=== PATIENT | male | born 1995 | race Caucasian/White ===

== ENCOUNTER 2019-04-17 18:48 | Emergency (ER) | payer SELFPAY ==
[~2019-04-17] VITALS: Ht 185 cm; Wt 87.1 kg
[~2019-04-17 18:48] MED LIST: ACET1TAB12 PO; ARPZ10T; CLC500CT; ESCI5TAB; FAMO10TA43; LISD40CA3; NAPR-243 PO
--- NOTE | 2019-04-17 19:05 | NUR ---
moved pt to room 7
[2019-04-17] MEDS ORDERED: NS IV 1000 ML 1,000 ML IV SCH (19:15)
[2019-04-17] MEDS ORDERED: ONDANSETRON 4 MG/2 ML (SDV) Z0FRAN IVP ONE (19:15)
--- NOTE | 2019-04-17 19:20 | ED Abdominal Pain ---
General Chief Complaint: Abdominal/GI Problems Stated Complaint: CHILLS, NAUSEA Nursing Triage Note: Patient ambulatory to ER with complaint of vomiting, diarrhea, intermittent fever and body aches x 3 days. Sepsis Screen: No Definite Risk Source of Information: Patient Exam Limitations: No Limitations History of Present Illness Date Seen by Provider: Apr 17, 2019 Time Seen by Provider: 19:18 Initial Comments Diffuse body aches nausea vomiting diarrhea and abdominal cramping for 3 days. Timing/Duration: 2-3 Days Severity/Quality: Moderate Location: Generalized Abdomen Radiation: No Radiation Activities at Onset: None Associated Symptoms: Nausea/Vomiting Allergies and Home Medications Allergies Coded Allergies: Penicillins (Unverified Allergy, Mild, 08/30/09) Patient Home Medication List Home Medication List Reviewed: Yes Review of Systems Review of Systems Constitutional: see HPI EENTM: No Symptoms Reported Respiratory: No Symptoms Reported Cardiovascular: No Symptoms Reported Gastrointestinal: See HPI, Abdominal Pain, Diarrhea, Nausea, Poor Appetite Genitourinary: No Symptoms Reported Musculoskeletal: no symptoms reported Skin: no symptoms reported Psychiatric/Neurological: No Symptoms Reported Endocrine: No Symptoms Reported Hematologic/Lymphatic: No Symptoms Reported Past Nzfjdzq-Bornks-Vmraqg Hx Patient Social History Alcohol Use: Denies Use Recreational Drug Use: No Smoking Status: Current Everyday Smoker Type Used: Electronic/Vapor 2nd Hand Smoke Exposure: Yes Recent Foreign Travel: No Contact w/Someone Who Travel: No Recent Infectious Disease Expo: No Recent Hopitalizations: No Immunizations Up To Date PED Vaccines UTD: Yes Seasonal Allergies Seasonal Allergies: No Past Medical History Surgeries: Yes Respiratory: No Cardiac: No Neurological: No Gastrointestinal: Yes Gastroesophageal Reflux Musculoskeletal: No Endocrine: No Cancer: No Psychosocial: Yes (Non medicated) ADD/ADHD, Anxiety, Bipolar, Depression Integumentary: No (septic MRSA) Blood Disorders: No Family Medical History No Pertinent Family Hx Physical Exam Vital Signs Vital Signs - First Documented 04/17/19 18:53 Temp 37.0 Pulse 69 Resp 16 B/P (MAP) 111/69 (83) Pulse Ox 100 O2 Delivery Room Air Capillary Refill : Less Than 3 Seconds Height/Weight/BMI Height: '" Weight: 160lbs. oz. 72.634200sb; 25.00 BMI Method:Stated General Appearance: WD/WN, no apparent distress HEENT: PERRL/EOMI, normal ENT inspection Neck: non-tender, full range of motion Respiratory: lungs clear, normal breath sounds, no respiratory distress, no accessory muscle use Cardiovascular: regular rate, rhythm Gastrointestinal: normal bowel sounds, non tender, soft Extremities: normal range of motion, non-tender Neurologic/Psychiatric: alert, normal mood/affect, oriented x 3 Skin: normal color, warm/dry Progress/Results/Core Measures Results/Orders Lab Results Laboratory Tests Test 04/17/19 19:10 04/17/19 20:01 Range/Units White Blood Count 5.8 4.3-11.0 10^3/uL Red Blood Count 5.18 4.35-5.85 10^6/uL Hemoglobin 15.3 13.3-17.7 G/DL Hematocrit 45 40-54 % Mean Corpuscular Volume 86 80-99 FL Mean Corpuscular Hemoglobin 30 25-34 PG Mean Corpuscular Hemoglobin Concent 34 32-36 G/DL Red Cell Distribution Width 12.6 10.0-14.5 % Platelet Count 201 130-400 10^3/uL Mean Platelet Volume 11.1 H 7.4-10.4 FL Neutrophils (%) (Auto) 54 42-75 % Lymphocytes (%) (Auto) 31 12-44 % Monocytes (%) (Auto) 9 0-12 % Eosinophils (%) (Auto) 5 0-10 % Basophils (%) (Auto) 1 0-10 % Neutrophils # (Auto) 3.1 1.8-7.8 X 10^3 Lymphocytes # (Auto) 1.8 1.0-4.0 X 10^3 Monocytes # (Auto) 0.5 0.0-1.0 X 10^3 Eosinophils # (Auto) 0.3 0.0-0.3 10^3/uL Basophils # (Auto) 0.0 0.0-0.1 10^3/uL Sodium Level 141 135-145 MMOL/L Potassium Level 3.8 3.6-5.0 MMOL/L Chloride Level 104 98-107 MMOL/L Carbon Dioxide Level 28 21-32 MMOL/L Anion Gap 9 5-14 MMOL/L Blood Urea Nitrogen 16 7-18 MG/DL Creatinine 1.07 0.60-1.30 MG/DL Estimat Glomerular Filtration Rate > 60 BUN/Creatinine Ratio 15 Glucose Level 85 70-105 MG/DL Calcium Level 9.2 8.5-10.1 MG/DL Corrected Calcium 8.5-10.1 MG/DL Total Bilirubin 0.3 0.1-1.0 MG/DL Aspartate Amino Transf (AST/SGOT) 24 5-34 U/L Alanine Aminotransferase (ALT/SGPT) 17 0-55 U/L Alkaline Phosphatase 49 40-136 U/L Total Protein 7.1 6.4-8.2 GM/DL Albumin 4.7 H 3.2-4.5 GM/DL Lipase 47 8-78 U/L Urine Color YELLOW Urine Clarity CLEAR Urine pH 6.5 5-9 Urine Specific [place] 1.025 H 1.016-1.022 Urine Protein NEGATIVE NEGATIVE Urine Glucose (UA) NEGATIVE NEGATIVE Urine Ketones NEGATIVE NEGATIVE Urine Nitrite NEGATIVE NEGATIVE Urine Bilirubin NEGATIVE NEGATIVE Urine Urobilinogen 0.2 < = 1.0 MG/DL Urine Leukocyte Esterase NEGATIVE NEGATIVE Urine RBC (Auto) NEGATIVE NEGATIVE Urine RBC NONE /HPF Urine WBC NONE /HPF Urine Squamous Epithelial Cells NONE /HPF Urine Crystals PRESENT H /LPF Urine Amorphous Sediment FEW LILIAN URATES H /LPF Urine Bacteria NEGATIVE /HPF Urine Casts NONE /LPF Urine Mucus NEGATIVE /LPF Urine Culture Indicated NO Urine Opiates Screen NEGATIVE NEGATIVE Urine Oxycodone Screen NEGATIVE NEGATIVE Urine Methadone Screen NEGATIVE NEGATIVE Urine Propoxyphene Screen NEGATIVE NEGATIVE Urine Barbiturates Screen NEGATIVE NEGATIVE Ur Tricyclic Antidepressants Screen NEGATIVE NEGATIVE Urine Phencyclidine Screen NEGATIVE NEGATIVE Urine Amphetamines Screen NEGATIVE NEGATIVE Urine Methamphetamines Screen NEGATIVE NEGATIVE Urine Benzodiazepines Screen NEGATIVE NEGATIVE Urine Cocaine Screen NEGATIVE NEGATIVE Urine Cannabinoids Screen POSITIVE H NEGATIVE My Orders Orders - YONATAN VALENZUELA APRN Ua Culture If Indicated (04/17/19 19:13) Drug Screen Stat (Urine) (04/17/19 19:13) Cbc With Automated Diff (04/17/19 19:13) Comprehensive Metabolic Panel (04/17/19 19:13) Lipase (04/17/19 19:13) Ns Iv 1000 Ml (Sodium Chloride 0.9%) (04/17/19 19:15) Ondansetron Injection (Zofran Injectio (04/17/19 19:15) Medications Given in ED Current Medications Medications Dose Ordered Sig/Taya Route Start Time Stop Time Status Last Admin Dose Admin Ondansetron HCl 8 mg ONCE ONCE IVP 04/17/19 19:15 04/17/19 19:16 DC 04/17/19 19:20 8 MG Vital Signs/I&O 04/17/19 18:53 Temp 37.0 Pulse 69 Resp 16 B/P (MAP) 111/69 (83) Pulse Ox 100 O2 Delivery Room Air Blood Pressure Mean: 83 POS Departure Communication (Admissions) Advises us that he may have trouble providing us with a urine sample unless he were to drink the bottle of Mr. Peguero that he brought to ER with him. Advised him that might not be a great idea since he is here for nausea vomiting and diarrhea. Impression Primary Impression: Nausea vomiting and diarrhea Disposition: HOME, SELF-CARE Condition: Stable Departure-Patient Inst. Decision time for Depature: 20:25 Referrals: NO,LOCAL PHYSICIAN (PCP/Family) Primary Care Physician Patient Instructions: Nausea and Vomiting, Adult (DC) Add. Discharge Instructions: 1. Return to ER for any worsening 2. Follow-up with your doctor next week 3. Clear liquids only in the next 24 hours. All discharge instructions reviewed with patient and/or family. Voiced understanding. Scripts Ondansetron (Ondansetron Odt) 8 Mg Tab.rapdis 8 MG PO Q6H PRN for NAUSEA/VOMITING, #10 TAB Prov: YONATAN VALENZUELA APRN 04/17/19 Work/School Note: Work Release Form Date Seen in the Emergency Department: Apr 17, 2019 Return to Work: Apr 18, 2019 YONATAN VALENZUELA APRN Apr 17, 2019 19:20 POS
[2019-04-17 19:21] LABS: BASOPHILS % (AUTO) 1 % (0-10); EOSINOPHILS # (AUTO) 0.3 10^3/uL (0.0-0.3); EOSINOPHILS % (AUTO) 5 % (0-10); HEMATOCRIT 45 % (40-54); HEMOGLOBIN 15.3 G/DL (13.3-17.7); LYMPHOCYTES # (AUTO) 1.8 X 10^3 (1.0-4.0); LYMPHOCYTES % (AUTO) 31 % (12-44); MEAN CORPUSCULAR HEMOGLOBIN 30 PG (25-34); MEAN CORPUSCULAR HGB CONC 34 G/DL (32-36); MEAN CORPUSCULAR VOLUME 86 FL (80-99); MEAN PLATELET VOLUME 11.1 FL (7.4-10.4); MONOCYTES # (AUTO) 0.5 X 10^3 (0.0-1.0); MONOCYTES % (AUTO) 9 % (0-12); NEUTROPHILS # (AUTO) 3.1 X 10^3 (1.8-7.8); NEUTROPHILS % (AUTO) 54 % (42-75); PLATELET COUNT 201 10^3/uL (130-400); RED CELL DISTRIBUTION WIDTH 12.6 % (10.0-14.5); WHITE BLOOD COUNT 5.8 10^3/uL (4.3-11.0)
[2019-04-17 19:34] LABS: ALANINE AMINOTRANSFERASE 17 U/L (0-55); ALBUMIN 4.7 GM/DL (3.2-4.5); ALKALINE PHOSPHATASE 49 U/L (40-136); BILIRUBIN,TOTAL 0.3 MG/DL (0.1-1.0); BUN/CREATININE RATIO 15; CALCIUM 9.2 MG/DL (8.5-10.1); CARBON DIOXIDE 28 MMOL/L (21-32); CHLORIDE 104 MMOL/L (98-107); CREATININE SERUM 1.07 MG/DL (0.60-1.30); GFR ESTIMATED > 60; GLUCOSE 85 MG/DL (70-105); LIPASE 47 U/L (8-78); POTASSIUM 3.8 MMOL/L (3.6-5.0); SODIUM 141 MMOL/L (135-145); TOTAL PROTEIN 7.1 GM/DL (6.4-8.2)
[2019-04-17 20:11] LABS: BILIRUBIN,URINE NEGATIVE (NEGATIVE); CLARITY,URINE CLEAR; COLOR,URINE YELLOW; GLUCOSE, URINE (UA) NEGATIVE (NEGATIVE); KETONES,URINE NEGATIVE (NEGATIVE); LEUKOCYTE ESTERASE ,URINE NEGATIVE (NEGATIVE); NITRITE,URINE NEGATIVE (NEGATIVE); PH,URINE 6.5 (5-9); PROTEIN,URINE NEGATIVE (NEGATIVE)
[2019-04-17 20:17] LABS: BACTERIA,URINE NEGATIVE /HPF
[2019-04-17 20:18] LABS: AMORPHOUS SEDIMENT,UR FEW AMOR URATES /LPF
[2019-04-17 20:20] LABS: AMPHETAMINE SCREEN, URINE NEGATIVE (NEGATIVE); BARBITURATE SCREEN URINE NEGATIVE (NEGATIVE); BENZODIAZEPINES SCREEN URINE NEGATIVE (NEGATIVE); CANNABINOID SCREEN, URINE POSITIVE (NEGATIVE); COCAINE SCREEN URINE NEGATIVE (NEGATIVE); METHADONE STAT NEGATIVE (NEGATIVE); METHAMPHETAMINE SCREEN URINE S NEGATIVE (NEGATIVE); OPIATE SCREEN URINE NEGATIVE (NEGATIVE); OXYCODONE STAT NEGATIVE (NEGATIVE); PROPOXYPHENE STAT NEGATIVE (NEGATIVE); TRICYCLIC ANTIDEPRESSANTS SCRE NEGATIVE (NEGATIVE)
[2019-04-17] MEDS ORDERED: ONDA8TAB13 PO (20:26)
[2019-04-17 20:30] VITALS: BP 103/63
== END 2019-04-17 20:30 | disposition home or self-care (01) ==
LOC: EDUNIT# 18:48 → ER 18:50
DX: R19.7 Diarrhea, unspecified (principal); R11.2 Nausea with vomiting, unspecified; K21.9 Gastro-esophageal reflux disease without esophagitis; F90.9 Attention-deficit hyperactivity disorder, unspecified type; F41.9 Anxiety disorder, unspecified; F31.9 Bipolar disorder, unspecified; F17.290 Nicotine dependence, other tobacco product, uncomplicated; Z88.0 Allergy status to penicillin
CPT/HCPCS: 36415; 80053; 80306; 81000; 83690; 85025

== ENCOUNTER 2019-12-21 14:47 | Emergency (ER) | payer SELFPAY ==
[~2019-12-21] VITALS: Ht 185 cm; Wt 75.0 kg
[~2019-12-21 14:47] MED LIST changes: +ONDA8TAB13 PO
[2019-12-21 14:50] VITALS: BP 116/76
[2019-12-21] MEDS ORDERED: ACET-1672 PO (15:01)
[2019-12-21] MEDS ORDERED: NAPR-915 PO (15:01)
[2019-12-21] MEDS ORDERED: CLIN300C11 PO (15:01)
--- NOTE | 2019-12-21 15:02 | ED EENT ---
History of Present Illness General Chief Complaint: Dental Problems/Pain Stated Complaint: DENTAL PAIN Source: patient Exam Limitations: no limitations History of Present Illness Date Seen by Provider: Dec 21, 2019 Time Seen by Provider: 15:00 Initial Comments To Er with 3 days of maxillary dental pain Timing/Duration: other Severity: moderate Location: dental Prearrival Treatment: no prearrival treatment Associated Symptoms: denies symptoms Allergies and Home Medications Allergies Coded Allergies: Penicillins (Unverified Allergy, Mild, 08/30/09) Home Medications Acetaminophen/Diphenhydramine 1 Each Tablet, 2 EACH PO Q6H PRN for PAIN-SEVERE (8-10) Prescribed by: YONATAN VALENZUELA on 12/21/19 1501 Clindamycin HCl 300 Mg Capsule, 300 MG PO TID Prescribed by: YNOATAN VALENZUELA on 12/21/19 1501 Naproxen 500 Mg Tablet, 500 MG PO Q12H Prescribed by: YONATAN VALENZUELA on 12/21/19 1501 Ondansetron 8 Mg Tab.rapdis, 8 MG PO Q6H PRN for NAUSEA/VOMITING Prescribed by: YONATAN VALENZUELA on 04/17/192025 Patient Home Medication List Home Medication List Reviewed: Yes Review of Systems Review of Systems Constitutional: see HPI Eyes: No Symptoms Reported Ears: No Symptoms Reported Nose: no symptoms reported Mouth: see HPI Throat: no symptoms reported Respiratory: no symptoms reported Cardiovascular: no symptoms reported Musculoskeletal: no symptoms reported Past Smqvfav-Qmpcwd-Zjxlux Hx Patient Social History Alcohol Use: Denies Use Recreational Drug Use: No Smoking Status: Current Everyday Smoker Type Used: Electronic/Vapor 2nd Hand Smoke Exposure: Yes Recent Foreign Travel: No Contact w/Someone Who Travel: No Recent Hopitalizations: No Immunizations Up To Date PED Vaccines UTD: Yes Seasonal Allergies Seasonal Allergies: No Past Medical History Surgeries: Yes Respiratory: No Cardiac: No Neurological: No Gastrointestinal: Yes Gastroesophageal Reflux Musculoskeletal: No Endocrine: No Cancer: No Psychosocial: Yes (Non medicated) ADD/ADHD, Anxiety, Bipolar, Depression Integumentary: No (septic MRSA) Blood Disorders: No Family Medical History No Pertinent Family Hx Physical Exam Height, Weight, BMI Height: '" Weight: 160lbs. oz. [id number]; 25.00 BMI Method:Stated General Appearance: WD/WN, no apparent distress Eyes: bilateral eye normal inspection, bilateral eye PERRL, bilateral eye EOMI Ears: bilateral ear auricle normal, bilateral ear canal normal, bilateral ear TM normal Mouth/Throat: other (maxillary tenderness) Neck: non-tender, full range of motion Respiratory: no respiratory distress, no accessory muscle use Neurologic/Psychiatric: alert, normal mood/affect, oriented x 3 Skin: normal color, warm/dry Departure Impression Primary Impression: Dental caries Disposition: 01 HOME, SELF-CARE Condition: Stable Departure-Patient Inst. Decision time for Depature: 15:00 Referrals: NO,LOCAL PHYSICIAN (PCP/Family) Primary Care Physician Patient Instructions: Dental Pain (DC) Scripts Clindamycin HCl (Clindamycin HCl) 300 Mg Capsule 300 MG PO TID, #21 CAP Prov: YONATAN VALENZUELA APRN 12/21/19 Naproxen (Naproxen) 500 Mg Tablet 500 MG PO Q12H for Renal Colic for 3 Days, #20 TAB Prov: YONATAN VALENZUELA APRN 12/21/19 Acetaminophen/Diphenhydramine (Percogesic 325-12.5 mg Tablet) 1 Each Tablet 2 EACH PO Q6H PRN for PAIN-SEVERE (8-10), #30 TAB Prov: YONATAN VALENZUELA APRN 12/21/19 YONATAN VALENZUELA APRN Dec 21, 2019 15:02
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
--- OUTSIDE RECORDS SUMMARY | 2019-12-21 17:17 | XMS REPORT ---
Author Author Quinten COLBERT Organization [facility] Address [address] [place] [address] Care Team Providers Care Gum Dipper Name Role Phone TIGIST COLBERT Unavailable PROBLEMS Type Condition ICD9-CM Code [id number] Code Onset Dates Condition S tatus SNOMED Code Problem Contusion of unspecified site 924.9 Active 106101936 Problem Frostbite of hand 991.1 Active 47 63639 Problem Sprain and strain of unspecified site of hip and thigh 843.9 Active 82622995 Problem Concussion, with loss of consciousness of 30 minutes or le ss 850.11 Active 504638300 Problem Cough 786.2 Active 90192441 Problem Diarrhea 787.91 Active 64405731 Problem Fever, unspecified 780.60 Active 3 72730226 Problem Loss of weight 783.21 Active 96438 5001 Problem Unspecified gastritis and ga stroduodenitis without mention of hemorrhage 535.50 Active 617572827 Problem Acute bronchitis 466.0 Active 105 07974 Problem Acute upper respiratory infections of unspecified site 465.9 Active 47793176 Problem Intestinal infection due to other organism, NEC 008.8 Active 36511306 Problem Unspecified constipation 564.00 Activ e 36824635 Problem Viral diarrhea A08.4 Active 87567 003 Problem Other atopic dermatitis and related conditions 691.8 Active 648189649 Problem Encounter for long-term (current) use of other medications V58.69 Active 169094247 Problem Acute pharyngitis 462 Active 36 6952179 Problem Acute sinusitis, unspecified 461.9 A ctive 02848562 Problem Allergic rhinitis, cause unspecified 477.9 Active 53918242 Problem Nondependent cannabis abuse, unspecified 305.20 Active [id number] ALLERGIES No Information ENCOUNTERS Encounter Location Date Diagnosis [facility] [address] [facility] [id number] [place] [address] Apr, [facility] [address] [id number] [address] [place] [address], [place] [address] 17 Apr, 2019 Viral diarrhea A08.4 [facility] [address] [id number] [address] [place] [address], [place] [address] 13 Feb, 2015 [facility] [address] [id number] [address] [place] [address], [place] [address] Aug, [facility] [address] [id number] [address] [place] [address], [place] [address] Aug, [facility] [address] [id number] [address] [place] [address], [place] [address] May, [facility] [address] [id number] [address] [place] [address], [place] [address] May, [facility] [address] [place] [id number] September, [facility] [address] [id number] [address] [place] [address] September, [facility] [address] [id number] [address] [place] [address] Apr, [facility] [address] [id number] [address] [place] [address], [place] [address] Apr, [facility] [address] [id number] [address] [place] [id number] Apr, [facility] [address] [id number] [address] [place] [address], [place] [address] Mar, [facility] [address] [id number] [address] [place] [address] Mar, [facility] [address] [id number] [address] [place] [id number] Feb, [facility] [address] [id number] [address] [place] [address], [place] [address] Feb, [facility] [address] [place] [id number] 15 Feb, 2013 [facility] [address] [id number] [address] [place] [address], [place] [address] 15 Feb, 2013 [facility] [address] [place] [id number] 57 Feb, [facility] [address] [id number] [address] [place] [address], [place] [address] 08 Feb, 2012 [facility] [address] [id number] [address] [place] [address], [place] [address] 17 Jan, 2012 [facility] [address] [id number] [address] [place] [address], [place] [address] 17 Jan, 2012 [facility] [address] [id number] [address] [place] [address], [place] [address] 14 Jan, 2012 [facility] [address] [id number] [address] [place] [address], [place] [address] Dec, [facility] [address] [id number] [address] [place] [address], [place] [address] 16 Dec, 2011 [facility] [address] [id number] [address] [place] [address], [place] [address] Dec, [facility] [address] [id number] [address] [place] [address], [place] [address] Dec, [facility] [address] [id number] [address] [place] [address], [place] [address] Dec, [facility] [address] [id number] [address] [place] [address], [place] [address] Nov, [facility] [address] [id number] [address] [place] [address], [place] [address] Nov, [facility] [address] [id number] [address] [place] [address], [place] [address] Nov, [facility] [address] [id number] [address] [place] [address], [place] [address] Nov, [facility] [address] [id number] [address] [place] [address], [place] [address] Oct, [facility] [address] [id number] [address] [place] [address], [place] [address] 27 Oct, 2011 [facility] [address] [id number] [address] [place] [address], [place] [address] Oct, [facility] [address] [id number] [address] [place] [address], [place] [address] 07 Oct, 2011 [facility] [address] [id number] [address] [place] [address], [place] [address] Oct, [facility] [address] [id number] [address] [place] [address], [place] [address] Oct, [facility] [address] [id number] [address] [place] [address], [place] [address] September, [facility] [address] [id number] [address] [place] [address], [place] [address] September, [facility] [address] [id number] [address] [place] [address], [place] [address] September, [facility] [address] [id number] [address] [place] [address], [place] [address] September, [facility] [address] [id number] [address] [place] [address], [place] [address] September, [facility] [address] [id number] [address] [place] [address], [place] [address] September, [facility] [address] [id number] [address] [place] [address], [place] [address] September, [facility] [address] [id number] [address] [place] [address], [place] [address] Aug, [facility] [address] [id number] [address] [place] [address], [place] [address] Aug, [facility] [address] [id number] [address] [place] [address], [place] [address] Aug, [facility] [address] [id number] [address] [place] [address], [place] [address] Aug, [facility] [address] [id number] [address] [place] [address], [place] [address] Aug, [facility] [address] [id number] [address] [place] [address], [place] [address] Jul, [facility] [address] [id number] [address] [place] [address], [place] [address] Jul, [facility] [address] [id number] [address] [place] [address], [place] [address] Jul, [facility] [address] [id number] [address] [place] [address], [place] [address] Jun, [facility] [address] [id number] [address] [place] [address], [place] [address] Jun, [facility] [address] [id number] [address] [place] [address], [place] [address] Jun, [facility] [address] [id number] [address] [place] [address], [place] [address] Jun, [facility] [address] [id number] [address] [place] [address], [place] [address] Jun, [facility] [address] [id number] [address] [place] [address], [place] [address] Jun, [facility] [address] [id number] [address] [place] [address], [place] [address] Jun, [facility] [address] [id number] [address] [place] [address], [place] [address] May, [facility] [address] [id number] [address] [place] [address], [place] [address] May, [facility] [address] [id number] [address] [place] [address], [place] [address] May, [facility] [address] [id number] [address] [place] [address], [place] [address] May, [facility] [address] [id number] [address] [place] [address], [place] [address] 13 May, 2011 [facility] [address] [id number] [address] [place] [address], [place] [address] 11 May, 2011 [facility] [address] [id number] [address] [place] [address], [place] [address] 04 May, 2011 [facility] [address] [id number] [address] [place] [address], [place] [address] 03 May, 2011 [facility] [address] [id number] [address] [place] [address], [place] [address] 28 Apr, 2011 [facility] [address] [id number] [address] [place] [address], [place] [address] 26 Apr, 2011 [facility] [address] [id number] [address] [place] [address], [place] [address] 14 Apr, 2011 [facility] [address] [id number] [address] [place] [address], [place] [address] 14 Apr, 2011 [facility] [address] [id number] [address] [place] [address], [place] [address] 12 Apr, 2011 [facility] [address] [id number] [address] [place] [address], [place] [address] 09 Apr, 2011 [facility] [address] [id number] [address] [place] [address], [place] [address] 29 Mar, 2011 [facility] [address] [id number] [address] [place] [address], [place] [address] 28 Mar, 2011 [facility] [address] [id number] [address] [place] [address], [place] [address] 23 Mar, 2011 [facility] [address] [id number] [address] [place] [address], [place] [address] 15 Mar, 2011 [facility] [address] [id number] [address] [place] [address], [place] [address] 15 Mar, 2011 [facility] [address] [id number] [address] [place] [address], [place] [address] Feb, [facility] [address] [id number] [address] [place] [address], [place] [address] Feb, [facility] [address] [id number] [address] [place] [address], [place] [address] Feb, [facility] [address] [id number] [address] [place] [address], [place] [address] Feb, [facility] [address] [id number] [address] [place] [address], [place] [address] Feb, [facility] [address] [id number] [address] [place] [address], [place] [address] Feb, [facility] [address] [id number] [address] [place] [address], [place] [address] Feb, [facility] [address] [id number] [address] [place] [address], [place] [address] Feb, [facility] [address] [id number] [address] [place] [address], [place] [address] Feb, [facility] [address] [id number] [address] [place] [address], [place] [address] Feb, [facility] [address] [id number] [address] [place] [address], [place] [address] September, [facility] [address] [id number] [address] [place] [address], [place] [address] Jul, [facility] [address] [id number] [address] [place] [address], [place] [address] May, [facility] [address] [id number] [address] [place] [address], [place] [address] Apr, [facility] [address] [id number] [address] [place] [address], [place] [address] Apr, [facility] [address] [id number] [address] [place] [address], [place] [address] Apr, [facility] [address] [id number] [address] [place] [id number] 10 Apr, 2010 [facility] [address] [id number] [address] [place] [id number] 10 Apr, 2010 [facility] [address] [id number] [address] [place] [phone] Apr, [facility] [address] [id number] [address] [place] [phone] Mar, [facility] [address] [id number] [address] [place] [phone] Mar, [facility] [address] [id number] [address] [place] [phone] Mar, [facility] [address] [id number] [address] [place] [phone] 16 Mar, 2010 [facility] [address] [id number] [address] [place] [id number] 14 Oct, 2009 [facility] [address] [id number] [address] [place] [phone] Mar, [facility] [address] [id number] [address] [place] [id number] Feb, [facility] [address] [id number] [address] [place] [phone] Mar, [facility] [address] [id number] [address] [place] [phone] September, [facility] [address] [id number] [address] [place] [phone] September, IMMUNIZATIONS No Known Immunizations SOCIAL HISTORY Never Assessed REASON FOR VISIT PLAN OF CARE VITAL SIGNS Height 71 in 2013-03-03 Weight 164 lbs 2013-03-03 Temperature 97.3 degrees Fahrenheit 2013-03-03 Heart Rate 80 bpm 2013-03-03 Respiratory Rate 16 2013-03-03 Blood pressure systolic 110 mmHg 2013-03-03 Blood pressure diastolic 70 mmHg 2013-03-03 MEDICATIONS Unknown Medications RESULTS No Results PROCEDURES No Known procedures INSTRUCTIONS MEDICATIONS ADMINISTERED No Known Medications
--- OUTSIDE RECORDS SUMMARY | 2019-12-21 17:17 | XMS REPORT ---
Author Author Quinten COLBERT Organization [facility] Address [address] [place] [address] Care Team Providers Care Supervisor [employer] Name Role Phone TIGIST COLBERT Unavailable PROBLEMS Type Condition ICD9-CM Code [id number] Code Onset Dates Condition S tatus SNOMED Code Problem Contusion of unspecified site 924.9 Active 180218808 Problem Frostbite of hand 991.1 Active 47 62856 Problem Sprain and strain of unspecified site of hip and thigh 843.9 Active 58554469 Problem Concussion, with loss of consciousness of 30 minutes or le ss 850.11 Active 936132542 Problem Cough 786.2 Active 98358286 Problem Diarrhea 787.91 Active 84363552 Problem Fever, unspecified 780.60 Active 3 52815434 Problem Loss of weight 783.21 Active 62327 5001 Problem Unspecified gastritis and ga stroduodenitis without mention of hemorrhage 535.50 Active 664891368 Problem Acute bronchitis 466.0 Active 105 14067 Problem Acute upper respiratory infections of unspecified site 465.9 Active 33299713 Problem Intestinal infection due to other organism, NEC 008.8 Active 64397724 Problem Unspecified constipation 564.00 Activ e 18134191 Problem Viral diarrhea A08.4 Active 63343 003 Problem Other atopic dermatitis and related conditions 691.8 Active 109831559 Problem Encounter for long-term (current) use of other medications V58.69 Active 762212525 Problem Acute pharyngitis 462 Active 36 8277586 Problem Acute sinusitis, unspecified 461.9 A ctive 92844004 Problem Allergic rhinitis, cause unspecified 477.9 Active 81634707 Problem Nondependent cannabis abuse, unspecified 305.20 Active [id number] ALLERGIES No Information ENCOUNTERS Encounter Location Date Diagnosis [facility] [address] [facility] [id number] [address] [address] Apr, [facility] [address] [id number] [address] [place] [address], [place] [address] 17 Apr, 2019 Viral diarrhea A08.4 [facility] [address] [id number] [address] [place] [address], [place] [address] 13 Feb, 2015 [facility] [address] [id number] [address] [place] [address], [place] [address] Aug, [facility] [address] [id number] [address] [place] [address], [place] [address] Aug, [facility] [address] [id number] [address] [place] [address], [place] [address] May, [facility] [address] [id number] [address] [place] [address], [place] [address] May, [facility] [address] [place], [place] [id number] 57 September, [facility] [address] [id number] [address] [place] [address] September, [facility] [address] [id number] [address] [place] [address] Apr, [facility] [address] [id number] [address] [place] [address], [place] [address] Apr, [facility] [address] [id number] [address] [place] [address] Apr, [facility] [address] [id number] [address] [place] [address], [place] [address] Mar, [facility] [address] [id number] [address] [place] [address] Mar, [facility] [address] [id number] [address] [place] [address] Feb, [facility] [address] [id number] [address] [place] [address], [place] [address] Feb, [facility] [address] [place], [place] [id number] 15 Feb, 2013 [facility] [address] [id number] [address] [place] [address], [place] [address] 15 Feb, 2013 [facility] [address] [place] [id number] 57 Feb, [facility] [address] [id number] [address] [place] [address], [place] [address] 08 Feb, 2012 [facility] [address] [id number] [address] [place] [address], [place] [address] 17 Jan, 2012 [facility] [address] [id number] [address] [place] [address], [place] [address] 17 Jan, 2012 [facility] [address] [id number] [address] [place] [address], [place] [address] 14 Jan, 2012 [facility] [address] [id number] [address] [place] [address], [place] [address] Dec, [facility] [address] [id number] [address] [place] [address], [place] [address] 16 Dec, 2011 [facility] [address] [id number] [address] [place] [address], [place] [address] Dec, [facility] [address] [id number] [address] [place] [address], [place] [address] Dec, [facility] [address] [id number] [address] [place] [address], [place] [address] Dec, [facility] [address] [id number] [address] [place] [address], [place] [address] Nov, [facility] [address] [id number] [address] [place] [address], [place] [address] Nov, [facility] [address] [id number] [address] [place] [address], [place] [address] Nov, [facility] [address] [id number] [address] [place] [address], [place] [address] Nov, [facility] [address] [id number] [address] [place] [address], [place] [address] Oct, [facility] [address] [id number] [address] [place] [address], [place] [address] 27 Oct, 2011 [facility] [address] [id number] [address] [place] [address], [place] [address] Oct, [facility] [address] [id number] [address] [place] [address], [place] [address] 07 Oct, 2011 [facility] [address] [id number] [address] [place] [address], [place] [address] Oct, [facility] [address] [id number] [address] [place] [address], [place] [address] Oct, [facility] [address] [id number] [address] [place] [address], [place] [address] September, [facility] [address] [id number] [address] [place] [address], [place] [address] September, [facility] [address] [id number] [address] [place] [address], [place] [address] September, [facility] [address] [id number] [address] [place] [address], [place] [address] September, [facility] [address] [id number] [address] [place] [address], [place] [address] September, [facility] [address] [id number] [address] [place] [address], [place] [address] September, [facility] [address] [id number] [address] [place] [address], [place] [address] September, [facility] [address] [id number] [address] [place] [address], [place] [address] Aug, [facility] [address] [id number] [address] [place] [address], [place] [address] Aug, [facility] [address] [id number] [address] [place] [address], [place] [address] Aug, [facility] [address] [id number] [address] [place] [address], [place] [address] Aug, [facility] [address] [id number] [address] [place] [address], [place] [address] Aug, [facility] [address] [id number] [address] [place] [address], [place] [address] Jul, [facility] [address] [id number] [address] [place] [address], [place] [address] Jul, [facility] [address] [id number] [address] [place] [address], [place] [address] Jul, [facility] [address] [id number] [address] [place] [address], [place] [address] Jun, [facility] [address] [id number] [address] [place] [address], [place] [address] Jun, [facility] [address] [id number] [address] [place] [address], [place] [address] Jun, [facility] [address] [id number] [address] [place] [address], [place] [address] Jun, [facility] [address] [id number] [address] [place] [address], [place] [address] Jun, [facility] [address] [id number] [address] [place] [address], [place] [address] Jun, [facility] [address] [id number] [address] [place] [address], [place] [address] Jun, [facility] [address] [id number] [address] [place] [address], [place] [address] May, [facility] [address] [id number] [address] [place] [address], [place] [address] May, [facility] [address] [id number] [address] [place] [address], [place] [address] May, [facility] [address] [id number] [address] [place] [address], [place] [address] May, [facility] [address] [id number] [address] [place] [address], [place] [address] 13 May, 2011 [facility] [address] [id number] [address] [place] [address], [place] [address] 11 May, 2011 [facility] [address] [id number] [address] [place] [address], [place] [address] 04 May, 2011 [facility] [address] [id number] [address] [place] [address], [place] [address] 03 May, 2011 [facility] [address] [id number] [address] [place] [address], [place] [address] 28 Apr, 2011 [facility] [address] [id number] [address] [place] [address], [place] [address] 26 Apr, 2011 [facility] [address] [id number] [address] [place] [address], [place] [address] 14 Apr, 2011 [facility] [address] [id number] [address] [place] [address], [place] [address] 14 Apr, 2011 [facility] [address] [id number] [address] [place] [address], [place] [address] 12 Apr, 2011 [facility] [address] [id number] [address] [place] [address], [place] [address] 09 Apr, 2011 [facility] [address] [id number] [address] [place] [address], [place] [address] 29 Mar, 2011 [facility] [address] [id number] [address] [place] [address], [place] [address] 28 Mar, 2011 [facility] [address] [id number] [address] [place] [address], [place] [address] 23 Mar, 2011 [facility] [address] [id number] [address] [place] [address], [place] [address] 15 Mar, 2011 [facility] [address] [id number] [address] [place] [address], [place] [address] 15 Mar, 2011 [facility] [address] [id number] [address] [place] [address], [place] [address] Feb, [facility] [address] [id number] [address] [place] [address], [place] [address] Feb, [facility] [address] [id number] [address] [place] [address], [place] [address] Feb, [facility] [address] [id number] [address] [place] [address], [place] [address] Feb, [facility] [address] [id number] [address] [place] [address], [place] [address] Feb, [facility] [address] [id number] [address] [place] [address], [place] [address] Feb, [facility] [address] [id number] [address] [place] [address], [place] [address] Feb, [facility] [address] [id number] [address] [place] [address], [place] [address] Feb, [facility] [address] [id number] [address] [place] [address], [place] [address] Feb, [facility] [address] [id number] [address] [place] [address], [place] [address] Feb, [facility] [address] [id number] [address] [place] [address], [place] [address] September, [facility] [address] [id number] [address] [place] [address], [place] [address] Jul, [facility] [address] [id number] [address] [place] [address], [place] [address] May, [facility] [address] [id number] [address] [place] [address], [place] [address] Apr, [facility] [address] [id number] [address] [place] [address], [place] [address] Apr, [facility] [address] [id number] [address] [place] [address], [place] [address] Apr, [facility] [address] [id number] [address] [place] [address] 10 Apr, 2010 [facility] [address] [id number] [address] [place] [place] [address] 10 Apr, 2010 [facility] [address] [id number] [address] [place] [place] [address] Apr, [facility] [address] [id number] [address] [place] [place] [address] Mar, [facility] [address] [id number] [address] [place] [address] Mar, [facility] [address] [id number] [address] [place] [address] 16 Mar, 2010 [facility] [address] [id number] [address] [place] [address] 16 Mar, 2010 [facility] [address] [id number] [address] [place] [address] 14 Oct, 2009 [facility] [address] [id number] [address] [place] [place] [address] Mar, [facility] [address] [id number] [address] [place] [address] Feb, [facility] [address] [id number] [address] [place] [address] Mar, [facility] [address] [id number] [address] [place] [address] September, [facility] [address] [id number] [address] [place] [address] September, IMMUNIZATIONS No Known Immunizations SOCIAL HISTORY Never Assessed REASON FOR VISIT PLAN OF CARE VITAL SIGNS MEDICATIONS Unknown Medications RESULTS No Results PROCEDURES No Known procedures INSTRUCTIONS MEDICATIONS ADMINISTERED No Known Medications
--- OUTSIDE RECORDS SUMMARY | 2019-12-21 17:17 | XMS REPORT ---
Author Author Quinten COLBERT Organization [facility] Address [address] [place] [address] Care Team Providers Care Key Punch Operator Name Role Phone TIGIST COLBERT Unavailable PROBLEMS Type Condition ICD9-CM Code [id number] Code Onset Dates Condition S tatus SNOMED Code Problem Contusion of unspecified site 924.9 Active 215327588 Problem Frostbite of hand 991.1 Active 47 29349 Problem Sprain and strain of unspecified site of hip and thigh 843.9 Active 89617791 Problem Concussion, with loss of consciousness of 30 minutes or le ss 850.11 Active 298867626 Problem Cough 786.2 Active 15325392 Problem Diarrhea 787.91 Active 25229276 Problem Fever, unspecified 780.60 Active 3 73810807 Problem Loss of weight 783.21 Active 05810 5001 Problem Unspecified gastritis and ga stroduodenitis without mention of hemorrhage 535.50 Active 971746081 Problem Acute bronchitis 466.0 Active 105 01168 Problem Acute upper respiratory infections of unspecified site 465.9 Active 72988929 Problem Intestinal infection due to other organism, NEC 008.8 Active 33345565 Problem Unspecified constipation 564.00 Activ e 05175162 Problem Viral diarrhea A08.4 Active 05595 003 Problem Other atopic dermatitis and related conditions 691.8 Active 311011189 Problem Encounter for long-term (current) use of other medications V58.69 Active 100887090 Problem Acute pharyngitis 462 Active 36 1261760 Problem Acute sinusitis, unspecified 461.9 A ctive 63950635 Problem Allergic rhinitis, cause unspecified 477.9 Active 49978358 Problem Nondependent cannabis abuse, unspecified 305.20 Active [id number] ALLERGIES No Information ENCOUNTERS Encounter Location Date Diagnosis [facility] [address] [id number] [place] [address] Apr, [facility] [address] [id number] [address] [place] [address], [place] [id number] 17 Apr, 2019 Viral diarrhea A08.4 [facility] [address] [id number] [address] [place] [address], [place] [id number] 13 Feb, 2015 [facility] [address] [id number] [address] [place] [address], [place] [address] Aug, [facility] [address] [id number] [address] [place] [address], [place] [address] Aug, [facility] [address] [id number] [address] [place] [address], [place] [address] May, [facility] [address] [id number] [address] [place] [address], [place] [address] May, [facility] [address] [place], [place] [id number] September, [facility] [address] [id number] [address] [place] [phone] September, [facility] [address] [id number] [address] [place] [address] Apr, [facility] [address] [id number] [address] [place] [address], [place] [address] Apr, [facility] [address] [id number] [address] [place] [phone] Apr, [facility] [address] [id number] [address] [place] [address], [place] [address] Mar, [facility] [address] [id number] [address] [place] [address] Mar, [facility] [address] [id number] [address] [place] [phone] Feb, [facility] [address] [id number] [address] [place] [address], [place] [address] Feb, [facility] [address] [place], [place] [id number] 15 Feb, 2013 [facility] [address] [id number] [address] [place] [address], [place] [id number] 15 Feb, 2013 [facility] [address] [id number] Feb, [facility] [address] [id number] [address] [place] [address], [place] [id number] 08 Feb, 2012 [facility] [address] [id number] [address] [place] [address], [place] [id number] 17 Jan, 2012 [facility] [address] [id number] [address] [place] [address], [place] [id number] 17 Jan, 2012 [facility] [address] [id number] [address] [place] [address], [place] [id number] 14 Jan, 2012 [facility] [address] [id number] [address] [place] [address], [place] [id number] Dec, [facility] [address] [id number] [address] [place] [address], [place] [id number] 16 Dec, 2011 [facility] [address] [id number] [address] [place] [address], [place] [phone] Dec, [facility] [address] [id number] [address] [place] [address], [place] [address] Dec, [facility] [address] [id number] [address] [place] [address], [place] [id number] Dec, [facility] [address] [id number] [address] [place] [address], [place] [phone] Nov, [facility] [address] [id number] [address] [place] [address], [place] [address] Nov, [facility] [address] [id number] [address] [place] [address], [place] [address] Nov, [facility] [address] [id number] [address] [place] [address], [place] [address] Nov, [facility] [address] [id number] [address] [place] [address], [place] [address] Oct, [facility] [address] [id number] [address] [place] [address], [place] [id number] 27 Oct, 2011 [facility] [address] [id number] [address] [place] [address], [place] [address] Oct, [facility] [address] [id number] [address] [place] [address], [place] [address] 07 Oct, 2011 [facility] [address] [id number] [address] [place] [address], [place] [address] Oct, [facility] [address] [id number] [address] [place] [address], [place] [address] Oct, [facility] [address] [id number] [address] [place] [address], [place] [id number] September, [facility] [address] [id number] [address] [place] [address], [place] [id number] September, [facility] [address] [id number] [address] [place] [address], [place] [id number] September, [facility] [address] [id number] [address] [place] [address], [place] [address] September, [facility] [address] [id number] [address] [place] [address], [place] [phone] September, [facility] [address] [id number] [address] [place] [address], [place] [address] September, [facility] [address] [id number] [address] [place] [address], [place] [address] September, [facility] [address] [id number] [address] [place] [address], [place] [address] Aug, [facility] [address] [id number] [address] [place] [address], [place] [address] Aug, [facility] [address] [id number] [address] [place] [address], [place] [address] Aug, [facility] [address] [id number] [address] [place] [address], [place] [address] Aug, [facility] [address] [id number] [address] [place] [address], [place] [address] Aug, [facility] [address] [id number] [address] [place] [address], [place] [address] Jul, [facility] [address] [id number] [address] [place] [address], [place] [address] Jul, [facility] [address] [id number] [address] [place] [address], [place] [address] Jul, [facility] [address] [id number] [address] [place] [address], [place] [address] Jun, [facility] [address] [id number] [address] [place] [address], [place] [address] Jun, [facility] [address] [id number] [address] [place] [address], [place] [address] Jun, [facility] [address] [id number] [address] [place] [address], [place] [address] Jun, [facility] [address] [id number] [address] [place] [address], [place] [address] Jun, [facility] [address] [id number] [address] [place] [address], [place] [address] Jun, [facility] [address] [id number] [address] [place] [address], [place] [address] Jun, [facility] [address] [id number] [address] [place] [address], [place] [address] May, [facility] [address] [id number] [address] [place] [address], [place] [address] May, [facility] [address] [id number] [address] [place] [address], [place] [address] May, [facility] [address] [id number] [address] [place] [address], [place] [address] May, [facility] [address] [id number] [address] [place] [address], [place] [id number] 13 May, 2011 [facility] [address] [id number] [address] [place] [address], [place] [address] 11 May, 2011 [facility] [address] [id number] [address] [place] [address], [place] [address] 04 May, 2011 [facility] [address] [id number] [address] [place] [address], [place] [address] 03 May, 2011 [facility] [address] [id number] [address] [place] [address], [place] [id number] 28 Apr, 2011 [facility] [address] [id number] [address] [place] [address], [place] [id number] 26 Apr, 2011 [facility] [address] [id number] [address] [place] [address], [place] [id number] 14 Apr, 2011 [facility] [address] [id number] [address] [place] [address], [place] [address] 14 Apr, 2011 [facility] [address] [id number] [address] [place] [address], [place] [id number] 12 Apr, 2011 [facility] [address] [id number] [address] [place] [address], [place] [id number] 09 Apr, 2011 [facility] [address] [id number] [address] [place] [address], [place] [id number] 29 Mar, 2011 [facility] [address] [id number] [address] [place] [address], [place] [id number] 28 Mar, 2011 [facility] [address] [id number] [address] [place] [address], [place] [address] 23 Mar, 2011 [facility] [address] [id number] [address] [place] [address], [place] [id number] 15 Mar, 2011 [facility] [address] [id number] [address] [place] [address], [place] [id number] 15 Mar, 2011 [facility] [address] [id number] [address] [place] [address], [place] [address] Feb, [facility] [address] [id number] [address] [place] [address], [place] [id number] Feb, [facility] [address] [id number] [address] [place] [address], [place] [address] Feb, [facility] [address] [id number] [address] [place] [address], [place] [address] Feb, [facility] [address] [id number] [address] [place] [address], [place] [address] Feb, [facility] [address] [id number] [address] [place] [address], [place] [address] Feb, [facility] [address] [id number] [address] [place] [address], [place] [address] Feb, [facility] [address] [id number] [address] [place] [address], [place] [address] Feb, [facility] [address] [id number] [address] [place] [address], [place] [address] Feb, [facility] [address] [id number] [address] [place] [address], [place] [address] Feb, [facility] [address] [id number] [address] [place] [address], [place] [id number] September, [facility] [address] [id number] [address] [place] [address], [place] [address] Jul, [facility] [address] [id number] [address] [place] [address], [place] [address] May, [facility] [address] [id number] [address] [place] [address], [place] [address] Apr, [facility] [address] [id number] [address] [place] [address], [place] [address] Apr, [facility] [address] [id number] [address] [place] [address], [place] [address] Apr, [facility] [address] [id number] [address] [place] [id number] 10 Apr, 2010 [facility] [address] [id number] [address] [place] [id number] 10 Apr, 2010 [facility] [address] [id number] [address] [place] [id number] Apr, [facility] [address] [id number] [address] [place] [id number] Mar, [facility] [address] [id number] [address] [place] [id number] Mar, [facility] [address] [id number] [address] [place] [id number] 16 Mar, 2010 [facility] [address] [id number] [address] [place] [address] 16 Mar, 2010 [facility] [address] [id number] [address] [place] [id number] 14 Oct, 2009 [facility] [address] [id number] [address] [place] [phone] Mar, [facility] [address] [id number] [address] [place] [phone] Feb, [facility] [address] [id number] [address] [place] [id number] Mar, [facility] [address] [id number] [address] [place] [phone] September, [facility] [address] [id number] [address] [place] [phone] September, IMMUNIZATIONS No Known Immunizations SOCIAL HISTORY Never Assessed REASON FOR VISIT PLAN OF CARE VITAL SIGNS MEDICATIONS Unknown Medications RESULTS No Results PROCEDURES No Known procedures INSTRUCTIONS MEDICATIONS ADMINISTERED No Known Medications
--- OUTSIDE RECORDS SUMMARY | 2019-12-21 17:17 | XMS REPORT ---
Author Author Quinten COLBERT Organization [facility] Address [address] [place] [address] Care Team Providers Care Repairer General Name Role Phone TIGIST COLBERT Unavailable PROBLEMS Type Condition ICD9-CM Code [id number] Code Onset Dates Condition S tatus SNOMED Code Problem Contusion of unspecified site 924.9 Active 499124351 Problem Frostbite of hand 991.1 Active 47 65201 Problem Sprain and strain of unspecified site of hip and thigh 843.9 Active 45351076 Problem Concussion, with loss of consciousness of 30 minutes or le ss 850.11 Active 900467639 Problem Cough 786.2 Active 61941907 Problem Diarrhea 787.91 Active 68137270 Problem Fever, unspecified 780.60 Active 3 69428231 Problem Loss of weight 783.21 Active 16803 5001 Problem Unspecified gastritis and ga stroduodenitis without mention of hemorrhage 535.50 Active 603305097 Problem Acute bronchitis 466.0 Active 105 91710 Problem Acute upper respiratory infections of unspecified site 465.9 Active 99715757 Problem Intestinal infection due to other organism, NEC 008.8 Active 13308914 Problem Unspecified constipation 564.00 Activ e 15393306 Problem Viral diarrhea A08.4 Active 84952 003 Problem Other atopic dermatitis and related conditions 691.8 Active 931015484 Problem Encounter for long-term (current) use of other medications V58.69 Active 805518415 Problem Acute pharyngitis 462 Active 36 4999229 Problem Acute sinusitis, unspecified 461.9 A ctive 01279969 Problem Allergic rhinitis, cause unspecified 477.9 Active 17000852 Problem Nondependent cannabis abuse, unspecified 305.20 Active [id number] ALLERGIES No Information ENCOUNTERS Encounter Location Date Diagnosis [facility] [address] [id number] [place] [address] Apr, [facility] [address] [id number] [address] [place] [address], [place] [address] 17 Apr, 2019 Viral diarrhea A08.4 [facility] [address] [id number] [address] [place] [address], [place] [address] 13 Feb, 2015 [facility] [address] [id number] [address] [place] [address], [place] [address] Aug, [facility] [address] [id number] [address] [place] [address], [place] [address] Aug, [facility] [address] [id number] [address] [place] [address], [place] [address] May, [facility] [address] [id number] [address] [place] [address], [place] [address] May, [facility] [address] [place], [place] [id number] 57 September, [facility] [address] [id number] [address] [place] [address] September, [facility] [address] [id number] [address] [place] [address] Apr, [facility] [address] [id number] [address] [place] [address], [place] [address] Apr, [facility] [address] [id number] [address] [place] [address] Apr, [facility] [address] [id number] [address] [place] [address], [place] [address] Mar, [facility] [address] [id number] [address] [place] [address] Mar, [facility] [address] [id number] [address] [place] [address] Feb, [facility] [address] [id number] [address] [place] [address], [place] [address] Feb, [facility] [address] [place], [place] [id number] 15 Feb, 2013 [facility] [address] [id number] [address] [place] [address], [place] [address] 15 Feb, 2013 [facility] [address] [place] [id number] 57 Feb, [facility] [address] [id number] [address] [place] [address], [place] [address] 08 Feb, 2012 [facility] [address] [id number] [address] [place] [address], [place] [address] 17 Jan, 2012 [facility] [address] [id number] [address] [place] [address], [place] [address] 17 Jan, 2012 [facility] [address] [id number] [address] [place] [address], [place] [address] 14 Jan, 2012 [facility] [address] [id number] [address] [place] [address], [place] [address] Dec, [facility] [address] [id number] [address] [place] [address], [place] [address] 16 Dec, 2011 [facility] [address] [id number] [address] [place] [address], [place] [address] Dec, [facility] [address] [id number] [address] [place] [address], [place] [address] Dec, [facility] [address] [id number] [address] [place] [address], [place] [address] Dec, [facility] [address] [id number] [address] [place] [address], [place] [address] Nov, [facility] [address] [id number] [address] [place] [address], [place] [address] Nov, [facility] [address] [id number] [address] [place] [address], [place] [address] Nov, [facility] [address] [id number] [address] [place] [address], [place] [address] Nov, [facility] [address] [id number] [address] [place] [address], [place] [address] Oct, [facility] [address] [id number] [address] [place] [address], [place] [address] 27 Oct, 2011 [facility] [address] [id number] [address] [place] [address], [place] [address] Oct, [facility] [address] [id number] [address] [place] [address], [place] [address] 07 Oct, 2011 [facility] [address] [id number] [address] [place] [address], [place] [address] Oct, [facility] [address] [id number] [address] [place] [address], [place] [address] Oct, [facility] [address] [id number] [address] [place] [address], [place] [address] September, [facility] [address] [id number] [address] [place] [address], [place] [address] September, [facility] [address] [id number] [address] [place] [address], [place] [address] September, [facility] [address] [id number] [address] [place] [address], [place] [address] September, [facility] [address] [id number] [address] [place] [address], [place] [address] September, [facility] [address] [id number] [address] [place] [address], [place] [address] September, [facility] [address] [id number] [address] [place] [address], [place] [address] September, [facility] [address] [id number] [address] [place] [address], [place] [address] Aug, [facility] [address] [id number] [address] [place] [address], [place] [address] Aug, [facility] [address] [id number] [address] [place] [address], [place] [address] Aug, [facility] [address] [id number] [address] [place] [address], [place] [address] Aug, [facility] [address] [id number] [address] [place] [address], [place] [address] Aug, [facility] [address] [id number] [address] [place] [address], [place] [address] Jul, [facility] [address] [id number] [address] [place] [address], [place] [address] Jul, [facility] [address] [id number] [address] [place] [address], [place] [address] Jul, [facility] [address] [id number] [address] [place] [address], [place] [address] Jun, [facility] [address] [id number] [address] [place] [address], [place] [address] Jun, [facility] [address] [id number] [address] [place] [address], [place] [address] Jun, [facility] [address] [id number] [address] [place] [address], [place] [address] Jun, [facility] [address] [id number] [address] [place] [address], [place] [address] Jun, [facility] [address] [id number] [address] [place] [address], [place] [address] Jun, [facility] [address] [id number] [address] [place] [address], [place] [address] Jun, [facility] [address] [id number] [address] [place] [address], [place] [address] May, [facility] [address] [id number] [address] [place] [address], [place] [address] May, [facility] [address] [id number] [address] [place] [address], [place] [address] May, [facility] [address] [id number] [address] [place] [address], [place] [address] May, [facility] [address] [id number] [address] [place] [address], [place] [address] 13 May, 2011 [facility] [address] [id number] [address] [place] [address], [place] [address] 11 May, 2011 [facility] [address] [id number] [address] [place] [address], [place] [address] 04 May, 2011 [facility] [address] [id number] [address] [place] [address], [place] [address] 03 May, 2011 [facility] [address] [id number] [address] [place] [address], [place] [address] 28 Apr, 2011 [facility] [address] [id number] [address] [place] [address], [place] [address] 26 Apr, 2011 [facility] [address] [id number] [address] [place] [address], [place] [address] 14 Apr, 2011 [facility] [address] [id number] [address] [place] [address], [place] [address] 14 Apr, 2011 [facility] [address] [id number] [address] [place] [address], [place] [address] 12 Apr, 2011 [facility] [address] [id number] [address] [place] [address], [place] [address] 09 Apr, 2011 [facility] [address] [id number] [address] [place] [address], [place] [address] 29 Mar, 2011 [facility] [address] [id number] [address] [place] [address], [place] [address] 28 Mar, 2011 [facility] [address] [id number] [address] [place] [address], [place] [address] 23 Mar, 2011 [facility] [address] [id number] [address] [place] [address], [place] [address] 15 Mar, 2011 [facility] [address] [id number] [address] [place] [address], [place] [address] 15 Mar, 2011 [facility] [address] [id number] [address] [place] [address], [place] [address] Feb, [facility] [address] [id number] [address] [place] [address], [place] [address] Feb, [facility] [address] [id number] [address] [place] [address], [place] [address] Feb, [facility] [address] [id number] [address] [place] [address], [place] [address] Feb, [facility] [address] [id number] [address] [place] [address], [place] [address] Feb, [facility] [address] [id number] [address] [place] [address], [place] [address] Feb, [facility] [address] [id number] [address] [place] [address], [place] [address] Feb, [facility] [address] [id number] [address] [place] [address], [place] [address] Feb, [facility] [address] [id number] [address] [place] [address], [place] [address] Feb, [facility] [address] [id number] [address] [place] [address], [place] [address] Feb, [facility] [address] [id number] [address] [place] [address], [place] [address] September, [facility] [address] [id number] [address] [place] [address], [place] [address] Jul, [facility] [address] [id number] [address] [place] [address], [place] [address] May, [facility] [address] [id number] [address] [place] [address], [place] [address] Apr, [facility] [address] [id number] [address] [place] [address], [place] [address] Apr, [facility] [address] [id number] [address] [place] [address], [place] [address] Apr, [facility] [address] [id number] [address] [place] [address] 10 Apr, 2010 [facility] [address] [id number] [address] [place] [address] 10 Apr, 2010 [facility] [address] [id number] [address] [place] [address] Apr, [facility] [address] [id number] [address] [place] [address] Mar, [facility] [address] [id number] [address] [place] [address] Mar, [facility] [address] [id number] [address] [place] [address] 16 Mar, 2010 [facility] [address] [id number] [address] [place] [address] 16 Mar, 2010 [facility] [address] [id number] [address] [place] [address] 14 Oct, 2009 [facility] [address] [id number] [address] [place] [address] Mar, [facility] [address] [id number] [address] [place] [address] Feb, [facility] [address] [id number] [address] [place] [address] Mar, [facility] [address] [id number] [address] [place] [address] September, [facility] [address] [id number] [address] [place] [address] September, IMMUNIZATIONS No Known Immunizations SOCIAL HISTORY Never Assessed REASON FOR VISIT PLAN OF CARE VITAL SIGNS MEDICATIONS Unknown Medications RESULTS No Results PROCEDURES No Known procedures INSTRUCTIONS MEDICATIONS ADMINISTERED No Known Medications
--- OUTSIDE RECORDS SUMMARY | 2019-12-21 17:18 | XMS REPORT ---
Author Author Quinten Alanis Doctor Organization [facility] Address Unknown Phone Unavailable Care Team Providers Care Flexible Nanny Name Role Phone Migration, Doctor Unavailable Unavailable PROBLEMS Type Condition ICD9-CM Code [id number] Code Onset Dates Condition S tatus SNOMED Code Problem Contusion of unspecified site 924.9 Active 691057923 Problem Frostbite of hand 991.1 Active 47 70653 Problem Sprain and strain of unspecified site of hip and thigh 843.9 Active 32409643 Problem Concussion, with loss of consciousness of 30 minutes or le ss 850.11 Active 230590822 Problem Cough 786.2 Active 32807239 Problem Diarrhea 787.91 Active 57093479 Problem Fever, unspecified 780.60 Active 3 34284171 Problem Loss of weight 783.21 Active 88938 5001 Problem Unspecified gastritis and ga stroduodenitis without mention of hemorrhage 535.50 Active 276323540 Problem Acute bronchitis 466.0 Active 105 89253 Problem Acute upper respiratory infections of unspecified site 465.9 Active 14262482 Problem Intestinal infection due to other organism, NEC 008.8 Active 12145224 Problem Unspecified constipation 564.00 Activ e 23669077 Problem Viral diarrhea A08.4 Active 73456 003 Problem Other atopic dermatitis and related conditions 691.8 Active 787863908 Problem Encounter for long-term (current) use of other medications V58.69 Active 846675374 Problem Acute pharyngitis 462 Active 36 7775466 Problem Acute sinusitis, unspecified 461.9 A ctive 46985015 Problem Allergic rhinitis, cause unspecified 477.9 Active 54984558 Problem Nondependent cannabis abuse, unspecified 305.20 Active [id number] ALLERGIES No Information ENCOUNTERS Encounter Location Date Diagnosis [facility] [address] [facility] [id number] [address] [place] [id number] Apr, [facility] [address] [facility] [id number] [address] [place] [address] Apr, Viral diarrhea A08.4 [facility] [address] [id number] [address] [place] [address], [place] [address] 13 Feb, 2015 [facility] [address] [id number] [address] [place] [id number] 14 Aug, 2014 [facility] [address] [id number] [address] [place] [address], [place] [address] Aug, [facility] [address] [id number] [address] [place] [phone] May, [facility] [address] [id number] [address] [place] [address], [place] [address] May, [facility] [address] [facility] [id number] September, [facility] [address] [id number] [address] [place] [id number] September, [facility] [address] [id number] [address] [place] [phone] Apr, [facility] [address] [id number] [address] [place] [phone] Apr, [facility] [address] [id number] [address] [place] [phone] Apr, [facility] [address] [id number] [address] [place] [phone] Mar, [facility] [address] [id number] [address] [place] [phone] Mar, [facility] [address] [id number] [address] [place] [phone] Feb, [facility] [address] [id number] [address] [place] [address], [place] [address] Feb, [facility] [address] [id number] 57 Feb, [facility] [address] [id number] [address] [place] [phone] Feb, [facility] [address] [place] [id number] 08 Feb, 2013 [facility] [address] [id number] [address] [place] [address], [place] [address] 08 Feb, 2012 [facility] [address] [id number] [address] [place] [address], [place] [address] 17 Jan, 2012 [facility] [address] [id number] [address] [place] [address], [place] [address] 17 Jan, 2012 [facility] [address] [id number] [address] [place] [address], [place] [address] 14 Jan, 2012 [facility] [address] [id number] [address] [place] [address], [place] [address] 17 Dec, 2011 [facility] [address] [id number] [address] [place] [address], [place] [address] 16 Dec, 2011 [facility] [address] [id number] [address] [place] [address], [place] [address] 14 Dec, 2011 [facility] [address] [id number] [address] [place] [address], [place] [address] Dec, [facility] [address] [id number] [address] [place] [address], [place] [address] Dec, [facility] [address] [id number] [address] [place] [address], [place] [address] Nov, [facility] [address] [id number] [address] [place] [address], [place] [address] Nov, [facility] [address] [id number] [address] [place] [address], [place] [address] Nov, [facility] [address] [id number] [address] [place] [address], [place] [address] Nov, [facility] [address] [id number] [address] [place] [address], [place] [address] Oct, [facility] [address] [id number] [address] [place] [address], [place] [address] Oct, [facility] [address] [id number] [address] [place] [address], [place] [address] Oct, [facility] [address] [id number] [address] [place] [address], [place] [address] Oct, [facility] [address] [id number] [address] [place] [address], [place] [address] Oct, [facility] [address] [id number] [address] [place] [address], [place] [address] Oct, [facility] [address] [id number] [address] [place] [address], [place] [address] September, [facility] [address] [id number] [address] [place] [address], [place] [address] September, [facility] [address] [id number] [address] [place] [address], [place] [address] September, [facility] [address] [id number] [address] [place] [address], [place] [address] September, [facility] [address] [id number] [address] [place] [address], [place] [address] September, [facility] [address] [id number] [address] [place] [address], [place] [address] September, [facility] [address] [id number] [address] [place] [address], [place] [address] September, [facility] [address] [id number] [address] [place] [address], [place] [address] Aug, [facility] [address] [id number] [address] [place] [address], [place] [address] Aug, [facility] [address] [id number] [address] [place] [address], [place] [address] 16 Aug, 2011 [facility] [address] [id number] [address] [place] [address], [place] [address] Aug, [facility] [address] [id number] [address] [place] [address], [place] [address] 05 Aug, 2011 [facility] [address] [id number] [address] [place] [address], [place] [address] Jul, [facility] [address] [id number] [address] [place] [address], [place] [address] Jul, [facility] [address] [id number] [address] [place] [address], [place] [address] Jul, [facility] [address] [id number] [address] [place] [address], [place] [address] Jun, [facility] [address] [id number] [address] [place] [address], [place] [address] Jun, [facility] [address] [id number] [address] [place] [address], [place] [address] Jun, [facility] [address] [id number] [address] [place] [address], [place] [address] Jun, [facility] [address] [id number] [address] [place] [address], [place] [address] Jun, [facility] [address] [id number] [address] [place] [address], [place] [address] Jun, [facility] [address] [id number] [address] [place] [address], [place] [address] Jun, [facility] [address] [id number] [address] [place] [address], [place] [address] May, [facility] [address] [id number] [address] [place] [address], [place] [address] May, [facility] [address] [id number] [address] [place] [address], [place] [address] May, [facility] [address] [id number] [address] [place] [address], [place] [address] May, [facility] [address] [id number] [address] [place] [address], [place] [address] May, [facility] [address] [id number] [address] [place] [address], [place] [address] May, [facility] [address] [id number] [address] [place] [address], [place] [address] May, [facility] [address] [id number] [address] [place] [address], [place] [address] May, [facility] [address] [id number] [address] [place] [address], [place] [address] Apr, [facility] [address] [id number] [address] [place] [address], [place] [address] Apr, [facility] [address] [id number] [address] [place] [address], [place] [address] Apr, [facility] [address] [id number] [address] [place] [address], [place] [address] Apr, [facility] [address] [id number] [address] [place] [address], [place] [address] Apr, [facility] [address] [id number] [address] [place] [address], [place] [address] Apr, [facility] [address] [id number] [address] [place] [address], [place] [address] 29 Mar, 2011 [facility] [address] [id number] [address] [place] [address], [place] [address] 28 Mar, 2011 [facility] [address] [id number] [address] [place] [address], [place] [address] 23 Mar, 2011 [facility] [address] [id number] [address] [place] [address], [place] [address] 15 Mar, 2011 [facility] [address] [id number] [address] [place] [address], [place] [address] 15 Mar, 2011 [facility] [address] [id number] [address] [place] [address], [place] [address] 31 Feb, 2011 [facility] [address] [id number] [address] [place] [address], [place] [address] 31 Feb, 2011 [facility] [address] [id number] [address] [place] [address], [place] [address] Feb, [facility] [address] [id number] [address] [place] [address], [place] [address] Feb, [facility] [address] [id number] [address] [place] [address], [place] [address] Feb, [facility] [address] [id number] [address] [place] [address], [place] [address] Feb, [facility] [address] [id number] [address] [place] [address], [place] [address] Feb, [facility] [address] [id number] [address] [place] [address], [place] [address] Feb, [facility] [address] [id number] [address] [place] [address], [place] [address] Feb, [facility] [address] [id number] [address] [place] [address], [place] [address] Feb, [facility] [address] [id number] [address] [place] [address], [place] [address] September, [facility] [address] [id number] [address] [place] [address], [place] [address] Jul, [facility] [address] [id number] [address] [place] [address], [place] [address] May, [facility] [address] [id number] [address] [place] [address] Apr, [facility] [address] [id number] [address] [place] [address], [place] [address] Apr, [facility] [address] [id number] [address] [place] [address], [place] [address] Apr, [facility] [address] [id number] [address] [place] [address], [place] [address] Apr, [facility] [address] [id number] [address] [place] [address] 10 Apr, 2010 [facility] [address] [id number] [address] [place] [address] Apr, [facility] [address] [id number] [address] [place] [address] Mar, [facility] [address] [id number] [address] [place] [address] Mar, [facility] [address] [id number] [address] [place] [address] Mar, [facility] [address] [id number] [address] [place] [address] Mar, [facility] [address] [id number] [address] [place] [address] Oct, [facility] [address] [id number] [address] [place] [address] Mar, [facility] [address] [id number] [address] [place] [address] Feb, [facility] [address] [id number] [address] [place] [address] Mar, [facility] [address] [id number] [address] [place] [address] September, [facility] [address] [id number] [address] [place] [address] September, IMMUNIZATIONS No Known Immunizations SOCIAL HISTORY Never Assessed REASON FOR VISIT PLAN OF CARE VITAL SIGNS MEDICATIONS Unknown Medications RESULTS No Results PROCEDURES No Known procedures INSTRUCTIONS MEDICATIONS ADMINISTERED No Known Medications
--- OUTSIDE RECORDS SUMMARY | 2019-12-21 17:18 | XMS REPORT ---
Author Author Quinten COLBERT Organization [facility] Address [address] [place] [address] Care Team Providers Care Envelope Sealer Name Role Phone TIGIST COLBERT Unavailable PROBLEMS Type Condition ICD9-CM Code TMO63-OV Code Onset Dates Condition S tatus SNOMED Code Problem Contusion of unspecified site 924.9 Active 924719561 Problem Frostbite of hand 991.1 Active 47 52734 Problem Sprain and strain of unspecified site of hip and thigh 843.9 Active 41597742 Problem Concussion, with loss of consciousness of 30 minutes or le ss 850.11 Active 761127548 Problem Cough 786.2 Active 95176725 Problem Diarrhea 787.91 Active 66129835 Problem Fever, unspecified 780.60 Active 3 31240728 Problem Loss of weight 783.21 Active 90041 5001 Problem Unspecified gastritis and ga stroduodenitis without mention of hemorrhage 535.50 Active 436103455 Problem Acute bronchitis 466.0 Active 105 66742 Problem Acute upper respiratory infections of unspecified site 465.9 Active 02261293 Problem Intestinal infection due to other organism, NEC 008.8 Active 35956374 Problem Unspecified constipation 564.00 Activ e 86130556 Problem Viral diarrhea A08.4 Active 27961 003 Problem Other atopic dermatitis and related conditions 691.8 Active 956747366 Problem Encounter for long-term (current) use of other medications V58.69 Active 909926489 Problem Acute pharyngitis 462 Active 36 5705820 Problem Acute sinusitis, unspecified 461.9 A ctive 16425364 Problem Allergic rhinitis, cause unspecified 477.9 Active 65334744 Problem Nondependent cannabis abuse, unspecified 305.20 Active [id number] ALLERGIES No Information ENCOUNTERS Encounter Location Date Diagnosis [facility] [address] [facility] [id number] [place] [address] Apr, [facility] [address] [id number] [address] [place] [address], [place] [address] 17 Apr, 2019 Viral diarrhea A08.4 [facility] [address] [id number] [address] [place] [address], [place] [address] 13 Feb, 2015 [facility] [address] [id number] [address] [place] [address], [place] [address] Aug, [facility] [address] [id number] [address] [place] [address], [place] [address] Aug, [facility] [address] [id number] [address] [place] [address], [place] [address] May, [facility] [address] [id number] [address] [place] [address], [place] [address] May, [facility] [address] [place], [place] [id number] 57 September, [facility] [address] [id number] [address] [place] [phone] September, [facility] [address] [id number] [address] [place] [address] Apr, [facility] [address] [id number] [address] [place] [address], [place] [address] Apr, [facility] [address] [id number] [address] [place] [address] Apr, [facility] [address] [id number] [address] [place] [address], [place] [address] Mar, [facility] [address] [id number] [address] [place] [address] Mar, [facility] [address] [id number] [address] [place] [phone] Feb, [facility] [address] [id number] [address] [place] [address], [place] [address] Feb, [facility] [address] [place], [place] [id number] 15 Feb, 2013 [facility] [address] [id number] [address] [place] [address], [place] [address] 15 Feb, 2013 [facility] [address] [place] [place] [id number] 57 Feb, [facility] [address] [id number] [address] [place] [address], [place] [address] 08 Feb, 2012 [facility] [address] [id number] [address] [place] [address], [place] [address] 17 Jan, 2012 [facility] [address] [id number] [address] [place] [address], [place] [address] 17 Jan, 2012 [facility] [address] [id number] [address] [place] [address], [place] [address] 14 Jan, 2012 [facility] [address] [id number] [address] [place] [address], [place] [address] Dec, [facility] [address] [id number] [address] [place] [address], [place] [address] 16 Dec, 2011 [facility] [address] [id number] [address] [place] [address], [place] [address] Dec, [facility] [address] [id number] [address] [place] [address], [place] [address] Dec, [facility] [address] [id number] [address] [place] [address], [place] [address] Dec, [facility] [address] [id number] [address] [place] [address], [place] [address] Nov, [facility] [address] [id number] [address] [place] [address], [place] [address] Nov, [facility] [address] [id number] [address] [place] [address], [place] [address] Nov, [facility] [address] [id number] [address] [place] [address], [place] [address] Nov, [facility] [address] [id number] [address] [place] [address], [place] [address] Oct, [facility] [address] [id number] [address] [place] [address], [place] [address] 27 Oct, 2011 [facility] [address] [id number] [address] [place] [address], [place] [address] Oct, [facility] [address] [id number] [address] [place] [address], [place] [address] 07 Oct, 2011 [facility] [address] [id number] [address] [place] [address], [place] [address] Oct, [facility] [address] [id number] [address] [place] [address], [place] [address] Oct, [facility] [address] [id number] [address] [place] [address], [place] [address] September, [facility] [address] [id number] [address] [place] [address], [place] [address] September, [facility] [address] [id number] [address] [place] [address], [place] [address] September, [facility] [address] [id number] [address] [place] [address], [place] [address] September, [facility] [address] [id number] [address] [place] [address], [place] [address] September, [facility] [address] [id number] [address] [place] [address], [place] [address] September, [facility] [address] [id number] [address] [place] [address], [place] [address] September, [facility] [address] [id number] [address] [place] [address], [place] [address] Aug, [facility] [address] [id number] [address] [place] [address], [place] [address] Aug, [facility] [address] [id number] [address] [place] [address], [place] [address] Aug, [facility] [address] [id number] [address] [place] [address], [place] [address] Aug, [facility] [address] [id number] [address] [place] [address], [place] [address] Aug, [facility] [address] [id number] [address] [place] [address], [place] [address] Jul, [facility] [address] [id number] [address] [place] [address], [place] [address] Jul, [facility] [address] [id number] [address] [place] [address], [place] [address] Jul, [facility] [address] [id number] [address] [place] [address], [place] [address] Jun, [facility] [address] [id number] [address] [place] [address], [place] [address] Jun, [facility] [address] [id number] [address] [place] [address], [place] [address] Jun, [facility] [address] [id number] [address] [place] [address], [place] [address] Jun, [facility] [address] [id number] [address] [place] [address], [place] [address] Jun, [facility] [address] [id number] [address] [place] [address], [place] [address] Jun, [facility] [address] [id number] [address] [place] [address], [place] [address] Jun, [facility] [address] [id number] [address] [place] [address], [place] [address] May, [facility] [address] [id number] [address] [place] [address], [place] [address] May, [facility] [address] [id number] [address] [place] [address], [place] [address] May, [facility] [address] [id number] [address] [place] [address], [place] [address] May, [facility] [address] [id number] [address] [place] [address], [place] [address] 13 May, 2011 [facility] [address] [id number] [address] [place] [address], [place] [address] 11 May, 2011 [facility] [address] [id number] [address] [place] [address], [place] [address] 04 May, 2011 [facility] [address] [id number] [address] [place] [address], [place] [address] 03 May, 2011 [facility] [address] [id number] [address] [place] [address], [place] [address] 28 Apr, 2011 [facility] [address] [id number] [address] [place] [address], [place] [address] 26 Apr, 2011 [facility] [address] [id number] [address] [place] [address], [place] [address] 14 Apr, 2011 [facility] [address] [id number] [address] [place] [address], [place] [address] 14 Apr, 2011 [facility] [address] [id number] [address] [place] [address], [place] [address] 12 Apr, 2011 [facility] [address] [id number] [address] [place] [address], [place] [address] 09 Apr, 2011 [facility] [address] [id number] [address] [place] [address], [place] [address] 29 Mar, 2011 [facility] [address] [id number] [address] [place] [address], [place] [address] 28 Mar, 2011 [facility] [address] [id number] [address] [place] [address], [place] [address] 23 Mar, 2011 [facility] [address] [id number] [address] [place] [address], [place] [address] 15 Mar, 2011 [facility] [address] [id number] [address] [place] [address], [place] [address] 15 Mar, 2011 [facility] [address] [id number] [address] [place] [address], [place] [address] Feb, [facility] [address] [id number] [address] [place] [address], [place] [address] Feb, [facility] [address] [id number] [address] [place] [address], [place] [address] Feb, [facility] [address] [id number] [address] [place] [address], [place] [address] Feb, [facility] [address] [id number] [address] [place] [address], [place] [address] Feb, [facility] [address] [id number] [address] [place] [address], [place] [address] Feb, [facility] [address] [id number] [address] [place] [address], [place] [address] Feb, [facility] [address] [id number] [address] [place] [address], [place] [address] Feb, [facility] [address] [id number] [address] [place] [address], [place] [address] Feb, [facility] [address] [id number] [address] [place] [address], [place] [address] Feb, [facility] [address] [id number] [address] [place] [address], [place] [address] September, [facility] [address] [id number] [address] [place] [address], [place] [address] Jul, [facility] [address] [id number] [address] [place] [address], [place] [address] May, [facility] [address] [id number] [address] [place] [address], [place] [address] Apr, [facility] [address] [id number] [address] [place] [address], [place] [address] Apr, [facility] [address] [id number] [address] [place] [address], [place] [address] Apr, [facility] [address] [id number] [address] [place] [phone] 10 Apr, 2010 [facility] [address] [id number] [address] [place] [phone] 10 Apr, 2010 [facility] [address] [id number] [address] [place] [address] Apr, [facility] [address] [id number] [address] [place] [phone] Mar, [facility] [address] [id number] [address] [place] [address] Mar, [facility] [address] [id number] [address] [place] [phone] Mar, [facility] [address] [id number] [address] [place] [phone] 16 Mar, 2010 [facility] [address] [id number] [address] [place] [phone] 14 Oct, 2009 [facility] [address] [id number] [address] [place] [phone] Mar, [facility] [address] [id number] [address] [place] [phone] Feb, [facility] [address] [id number] [address] [place] [phone] Mar, [facility] [address] [id number] [address] [place] [phone] September, [facility] [address] [id number] [address] [place] [phone] September, IMMUNIZATIONS No Known Immunizations SOCIAL HISTORY Never Assessed REASON FOR VISIT PLAN OF CARE VITAL SIGNS Height 71 in 2011-11-09 Weight 159.19 lbs 2011-11-09 Temperature 99.1 degrees Fahrenheit 2011-11-09 Heart Rate 76 bpm 2011-11-09 Respiratory Rate 14 2011-11-09 Blood pressure systolic 118 mmHg 2011-11-09 Blood pressure diastolic 78 mmHg 2011-11-09 MEDICATIONS Unknown Medications RESULTS No Results PROCEDURES No Known procedures INSTRUCTIONS MEDICATIONS ADMINISTERED No Known Medications
--- OUTSIDE RECORDS SUMMARY | 2019-12-21 17:18 | XMS REPORT ---
Author Author Quinten COLBERT Organization [facility] Address [address] [place] [address] Care Team Providers Care Print Line Operator Name Role Phone TIGIST COLBERT Unavailable PROBLEMS Type Condition ICD9-CM Code QOY34-TM Code Onset Dates Condition S tatus SNOMED Code Problem Contusion of unspecified site 924.9 Active 065401107 Problem Frostbite of hand 991.1 Active 47 28346 Problem Sprain and strain of unspecified site of hip and thigh 843.9 Active 25396173 Problem Concussion, with loss of consciousness of 30 minutes or le ss 850.11 Active 004958576 Problem Cough 786.2 Active 89042636 Problem Diarrhea 787.91 Active 80423236 Problem Fever, unspecified 780.60 Active 3 71023874 Problem Loss of weight 783.21 Active 84373 5001 Problem Unspecified gastritis and ga stroduodenitis without mention of hemorrhage 535.50 Active 454861232 Problem Acute bronchitis 466.0 Active 105 21403 Problem Acute upper respiratory infections of unspecified site 465.9 Active 94461867 Problem Intestinal infection due to other organism, NEC 008.8 Active 97664790 Problem Unspecified constipation 564.00 Activ e 64959279 Problem Viral diarrhea A08.4 Active 58118 003 Problem Other atopic dermatitis and related conditions 691.8 Active 416513640 Problem Encounter for long-term (current) use of other medications V58.69 Active 864594075 Problem Acute pharyngitis 462 Active 36 9881562 Problem Acute sinusitis, unspecified 461.9 A ctive 61559815 Problem Allergic rhinitis, cause unspecified 477.9 Active 71455936 Problem Nondependent cannabis abuse, unspecified 305.20 Active [id number] ALLERGIES No Information ENCOUNTERS Encounter Location Date Diagnosis [facility] [address] [facility] [id number] [address] [address] Apr, [facility] [address] [id number] [address] [place] [address] 17 Apr, 2019 Viral diarrhea A08.4 [facility] [id number] [place] [address] 13 Feb, 2015 [facility] [address] [id number] [place] [address] 14 Aug, 2014 [facility] [place] [address] [id number] [place] [address] Aug, [facility] [place] [id number] [place] [address] May, [facility] [place] [address] [id number] [place] [address] May, [facility] [address] [place], [place] [id number] 57 September, [facility] [place] [id number] [place] [address] September, [facility] [place] [id number] [place] [address] Apr, [facility] [place] [id number] [place] [address] Apr, [facility] [place] [id number] [place] [address] Apr, [facility] [place] [id number] [place] [address] Mar, [facility] [address] [id number] [place] [address] Mar, [facility] [place] [id number] [place] [address] Feb, [facility] [address] [id number] [place] [address] Feb, [facility] [address] [place] [id number] 57 Feb, [facility] [place] [id number] [place] [address] Feb, [facility] [address], [place] [id number] 08 Feb, 2013 [facility] [address] [id number] [place] [address] 08 Feb, 2012 [facility] [address] [id number] [facility] [place] [address] 17 Jan, 2012 [facility] [address] [id number] [facility] [place] [address] 17 Jan, 2012 [facility] [address] [id number] [facility] [place] [address] 14 Jan, 2012 [facility] [address] [id number] [facility] [place] [address] Dec, [facility] [address] [id number] [place] [address] 16 Dec, 2011 [facility] [address] [id number] [place] [address] 14 Dec, 2011 [facility] [address] [id number] [place] [address] Dec, [facility] [address] [id number] [place] [address] Dec, [facility] [address] [id number] [place] [address] Nov, [facility] [address] [id number] [place] [address] 06 Nov, 2011 [facility] [address] [id number] [place] [address] 05 Nov, 2011 [facility] [address] [id number] [place] [address] Nov, [facility] [address] [id number] [place] [address] Oct, [facility] [address] [id number] [place] [address] Oct, [facility] [address] [id number] [place] [address] Oct, [facility] [address] [id number] [place] [address] 07 Oct, 2011 [facility] [address] [id number] [place] [address] Oct, [facility] [address] [id number] [place] [address] Oct, [facility] [address] [id number] [place] [address] September, [facility] [address] [id number] [place] [address] September, [facility] [address] [id number] [place] [address] September, [facility] [address] [id number] [place] [address] September, [facility] [address] [id number] [place] [address] September, [facility] [address] [id number] [place] [address] September, [facility] [address] [id number] [place] [address] September, [facility] [address] [id number] [place] [address] Aug, [facility] [address] [id number] [place] [address] Aug, [facility] [address] [id number] [place] [address] Aug, [facility] [address] [id number] [place] [address] Aug, [facility] [address] [id number] [place] [address] Aug, [facility] [address] [id number] [place] [address] Jul, [facility] [address] [id number] [place] [address] Jul, [facility] [address] [id number] [place] [address] Jul, [facility] [address] [id number] [place] [address] Jun, [facility] [address] [id number] [place] [address] 24 Jun, 2011 [facility] [address] [id number] [place] [address] Jun, [facility] [address] [facility] [id number] [place] [address] Jun, [facility] [address] [id number] [place] [address] 18 Jun, 2011 [facility] [address] [id number] [place] [address] Jun, [facility] [address] [id number] [place] [address] Jun, [facility] [address] [id number] [place] [address] May, [facility] [address] [id number] [place] [address] May, [facility] [address] [id number] [place] [address] May, [facility] [address] [id number] [place] [address] May, [facility] [address] [id number] [place] [address] May, [facility] [address] [id number] [place] [address] May, [facility] [address] [id number] [place] [address] May, [facility] [address] [id number] [place] [address] May, [facility] [address] [id number] [place] [address] 28 Apr, 2011 [facility] [address] [id number] [place] [address] Apr, [facility] [address] [id number] [place] [address] Apr, [facility] [address] [id number] [place] [address] 14 Apr, 2011 [facility] [address] [id number] [place] [address] Apr, [facility] [address] [id number] [place] [address] Apr, [facility] [address] [id number] [place] [address] Mar, [facility] [address] [id number] [place] [address] Mar, [facility] [address] [id number] [place] [address] Mar, [facility] [address] [id number] [place] [address] Mar, [facility] [address] [id number] [place] [address] 15 Mar, 2011 [facility] [address] [id number] [place] [address] 31 Feb, 2011 [facility] [address] [id number] [place] [address] 31 Feb, 2011 [facility] [address] [id number] [place] [address] 28 Feb, 2011 [facility] [id number] [place] [address] Feb, [facility] [address] [id number] [place] [address] Feb, [facility] [address] [id number] [place] [address] Feb, [facility] [address] [id number] [place] [address] Feb, [facility] [address] [id number] [place] [address] Feb, [facility] [address] [id number] [place] [address] 17 Feb, 2011 [facility] [address] [id number] [place] [address] Feb, [facility] [address] [id number] [place] [address] September, [facility] [address] [id number] [place] [address] Jul, [facility] [address] [id number] [place] [address] May, [facility] [address] [id number] [place] [address] Apr, [facility] [address] [id number] [place] [address] Apr, [facility] [address] [id number] [place] [address] Apr, [facility] [address] [id number] [place] [address] Apr, [facility] [address] [id number] [place] [address] Apr, [facility] [address] [id number] [place] [address] Apr, [facility] [address] [id number] [place] [address] Mar, [facility] [address] [id number] [place] [address] Mar, [facility] [address] [id number] [place] [address] 16 Mar, 2010 [facility] [address] [id number] [place] [address] 16 Mar, 2010 [facility] [address] [id number] [place] [address] 14 Oct, 2009 [facility] [address] [id number] [place] [address] 11 Mar, 2009 [facility] [address] [id number] [place] [address] Feb, [facility] [id number] [place] [address] Mar, [facility] [address] [id number] [place] [address] September, [facility] [address] [id number] [place] [address] September, IMMUNIZATIONS No Known Immunizations SOCIAL HISTORY Never Assessed REASON FOR VISIT PLAN OF CARE VITAL SIGNS Height 71 in 2013-09-15 Weight 169 lbs 2013-09-15 Temperature 98.1 degrees Fahrenheit 2013-09-15 Heart Rate 80 bpm 2013-09-15 Respiratory Rate 18 2013-09-15 Blood pressure systolic 100 mmHg 2013-09-15 Blood pressure diastolic 64 mmHg 2013-09-15 MEDICATIONS Unknown Medications RESULTS No Results PROCEDURES No Known procedures INSTRUCTIONS MEDICATIONS ADMINISTERED No Known Medications
--- OUTSIDE RECORDS SUMMARY | 2019-12-21 17:18 | XMS REPORT ---
Author Author Quinten Alanis Doctor Organization [facility] Address Unknown Phone Unavailable Care Team Providers Care Supervisor Sleeping Bag Department Name Role Phone Migration, Doctor Unavailable Unavailable PROBLEMS Type Condition ICD9-CM Code PAN36-YC Code Onset Dates Condition S tatus SNOMED Code Problem Contusion of unspecified site 924.9 Active 396710936 Problem Frostbite of hand 991.1 Active 47 30134 Problem Sprain and strain of unspecified site of hip and thigh 843.9 Active 28786917 Problem Concussion, with loss of consciousness of 30 minutes or le ss 850.11 Active 636779756 Problem Cough 786.2 Active 22686804 Problem Diarrhea 787.91 Active 09208278 Problem Fever, unspecified 780.60 Active 3 17966020 Problem Loss of weight 783.21 Active 44767 5001 Problem Unspecified gastritis and ga stroduodenitis without mention of hemorrhage 535.50 Active 088891827 Problem Acute bronchitis 466.0 Active 105 93951 Problem Acute upper respiratory infections of unspecified site 465.9 Active 17174884 Problem Intestinal infection due to other organism, NEC 008.8 Active 00874790 Problem Unspecified constipation 564.00 Activ e 12350423 Problem Viral diarrhea A08.4 Active 46982 003 Problem Other atopic dermatitis and related conditions 691.8 Active 509529774 Problem Encounter for long-term (current) use of other medications V58.69 Active 081582976 Problem Acute pharyngitis 462 Active 36 1927399 Problem Acute sinusitis, unspecified 461.9 A ctive 15311357 Problem Allergic rhinitis, cause unspecified 477.9 Active 81278413 Problem Nondependent cannabis abuse, unspecified 305.20 Active [id number] ALLERGIES No Information ENCOUNTERS Encounter Location Date Diagnosis [facility] [address] [facility] [id number] [address] [place] [phone] Apr, [facility] [address] [facility] [id number] [address] [place] [phone] Apr, Viral diarrhea A08.4 [facility] [address] [id number] [address] [place] [address], [place] [address] 13 Feb, 2015 [facility] [address] [id number] [address] [place] [phone] 14 Aug, 2014 [facility] [address] [id number] [address] [place] [address], [place] [address] Aug, [facility] [address] [id number] [address] [place] [phone] May, [facility] [address] [id number] [address] [place] [address], [place] [address] May, [facility] [address] [facility] [id number] 57 September, [facility] [address] [id number] [address] [place] [phone] September, [facility] [address] [id number] [address] [place] [address] Apr, [facility] [address] [id number] [address] [place] [phone] Apr, [facility] [address] [id number] [address] [place] [phone] Apr, [facility] [address] [id number] [address] [place] [phone] Mar, [facility] [address] [id number] [address] [place] [phone] Mar, [facility] [address] [id number] [address] [place] [phone] Feb, [facility] [address] [id number] [address] [place] [address], [place] [address] Feb, [facility] [address] [place], [place] [id number] 57 Feb, [facility] [address] [id number] [address] [place] [phone] Feb, [facility] [address] [place] [id number] 57 08 Feb, 2013 [facility] [address] [id number] [address] [place] [address], [place] [address] 08 Feb, 2012 [facility] [address] [id number] [address] [place] [address], [place] [address] 17 Jan, 2012 [facility] [address] [id number] [address] [place] [address], [place] [address] 17 Jan, 2012 [facility] [address] [id number] [address] [place] [address], [place] [address] 14 Jan, 2012 [facility] [address] [id number] [address] [place] [address], [place] [address] 17 Dec, 2011 [facility] [address] [id number] [address] [place] [address], [place] [address] 16 Dec, 2011 [facility] [address] [id number] [address] [place] [address], [place] [address] 14 Dec, 2011 [facility] [address] [id number] [address] [place] [address], [place] [address] Dec, [facility] [address] [id number] [address] [place] [address], [place] [address] Dec, [facility] [address] [id number] [address] [place] [address], [place] [address] Nov, [facility] [address] [id number] [address] [place] [address], [place] [address] Nov, [facility] [address] [id number] [address] [place] [address], [place] [address] Nov, [facility] [address] [id number] [address] [place] [address], [place] [address] Nov, [facility] [address] [id number] [address] [place] [address], [place] [address] Oct, [facility] [address] [id number] [address] [place] [address], [place] [address] Oct, [facility] [address] [id number] [address] [place] [address], [place] [address] Oct, [facility] [address] [id number] [address] [place] [address], [place] [address] Oct, [facility] [address] [id number] [address] [place] [address], [place] [address] Oct, [facility] [address] [id number] [address] [place] [address], [place] [address] Oct, [facility] [address] [id number] [address] [place] [address], [place] [address] September, [facility] [address] [id number] [address] [place] [address], [place] [address] September, [facility] [address] [id number] [address] [place] [address], [place] [address] September, [facility] [address] [id number] [address] [place] [address], [place] [address] September, [facility] [address] [id number] [address] [place] [address], [place] [address] September, [facility] [address] [id number] [address] [place] [address], [place] [address] September, [facility] [address] [id number] [address] [place] [address], [place] [address] September, [facility] [address] [id number] [address] [place] [address], [place] [address] Aug, [facility] [address] [id number] [address] [place] [address], [place] [address] Aug, [facility] [address] [id number] [address] [place] [address], [place] [address] 16 Aug, 2011 [facility] [address] [id number] [address] [place] [address], [place] [address] Aug, [facility] [address] [id number] [address] [place] [address], [place] [address] 05 Aug, 2011 [facility] [address] [id number] [address] [place] [address], [place] [address] Jul, [facility] [address] [id number] [address] [place] [address], [place] [address] Jul, [facility] [address] [id number] [address] [place] [address], [place] [address] Jul, [facility] [address] [id number] [address] [place] [address], [place] [address] Jun, [facility] [address] [id number] [address] [place] [address], [place] [address] Jun, [facility] [address] [id number] [address] [place] [address], [place] [address] Jun, [facility] [address] [id number] [address] [place] [address], [place] [address] Jun, [facility] [address] [id number] [address] [place] [address], [place] [address] Jun, [facility] [address] [id number] [address] [place] [address], [place] [address] Jun, [facility] [address] [id number] [address] [place] [address], [place] [address] Jun, [facility] [address] [id number] [address] [place] [address], [place] [address] May, [facility] [address] [id number] [address] [place] [address], [place] [address] May, [facility] [address] [id number] [address] [place] [address], [place] [address] May, [facility] [address] [id number] [address] [place] [address], [place] [address] May, [facility] [address] [id number] [address] [place] [address], [place] [address] May, [facility] [address] [id number] [address] [place] [address], [place] [address] May, [facility] [address] [id number] [address] [place] [address], [place] [address] May, [facility] [address] [id number] [address] [place] [address], [place] [address] May, [facility] [address] [id number] [address] [place] [address], [place] [address] Apr, [facility] [address] [id number] [address] [place] [address], [place] [address] Apr, [facility] [address] [id number] [address] [place] [address], [place] [address] Apr, [facility] [address] [id number] [address] [place] [address], [place] [address] Apr, [facility] [address] [id number] [address] [place] [address], [place] [address] Apr, [facility] [address] [id number] [address] [place] [address], [place] [address] Apr, [facility] [address] [id number] [address] [place] [address], [place] [address] 29 Mar, 2011 [facility] [address] [id number] [address] [place] [address], [place] [address] 28 Mar, 2011 [facility] [address] [id number] [address] [place] [address], [place] [address] 23 Mar, 2011 [facility] [address] [id number] [address] [place] [address], [place] [address] 15 Mar, 2011 [facility] [address] [id number] [address] [place] [address], [place] [address] 15 Mar, 2011 [facility] [address] [id number] [address] [place] [address], [place] [address] 31 Feb, 2011 [facility] [address] [id number] [address] [place] [address], [place] [address] 31 Feb, 2011 [facility] [address] [id number] [address] [place] [address], [place] [address] Feb, [facility] [address] [id number] [address] [place] [address], [place] [address] Feb, [facility] [address] [id number] [address] [place] [address], [place] [address] Feb, [facility] [address] [id number] [address] [place] [address], [place] [address] Feb, [facility] [address] [id number] [address] [place] [address], [place] [address] Feb, [facility] [address] [id number] [address] [place] [address], [place] [address] Feb, [facility] [address] [id number] [address] [place] [address], [place] [address] Feb, [facility] [address] [id number] [address] [place] [address], [place] [address] Feb, [facility] [address] [id number] [address] [place] [address], [place] [address] September, [facility] [address] [id number] [address] [place] [address], [place] [address] Jul, [facility] [address] [id number] [address] [place] [address], [place] [address] May, [facility] [address] [id number] [address] [place] [address] Apr, [facility] [address] [id number] [address] [place] [address], [place] [address] Apr, [facility] [address] [id number] [address] [place] [address], [place] [address] Apr, [facility] [address] [id number] [address] [place] [address], [place] [address] Apr, [facility] [address] [id number] [address] [place] [address] 10 Apr, 2010 [facility] [address] [id number] [address] [place] [address] Apr, [facility] [address] [id number] [address] [place] [phone] Mar, [facility] [address] [id number] [address] [place] [phone] Mar, [facility] [address] [id number] [address] [place] [address] Mar, [facility] [address] [id number] [address] [place] [address] Mar, [facility] [address] [id number] [address] [place] [address] Oct, [facility] [address] [id number] [address] [place] [address] Mar, [facility] [address] [id number] [address] [place] [phone] Feb, [facility] [address] [id number] [address] [place] [phone] Mar, [facility] [address] [id number] [address] [place] [address] September, [facility] [address] [id number] [address] [place] [phone] September, IMMUNIZATIONS No Known Immunizations SOCIAL HISTORY Never Assessed REASON FOR VISIT PLAN OF CARE VITAL SIGNS MEDICATIONS Unknown Medications RESULTS No Results PROCEDURES No Known procedures INSTRUCTIONS MEDICATIONS ADMINISTERED No Known Medications
--- OUTSIDE RECORDS SUMMARY | 2019-12-21 17:18 | XMS REPORT ---
Author Author Quinten COLBERT Organization [facility] Address [address] [place] [address] Care Team Providers Care Print Journalist Name Role Phone TIGIST COLBERT Unavailable PROBLEMS Type Condition ICD9-CM Code JPD96-[id number] Code Onset Dates Condition S tatus SNOMED Code Problem Contusion of unspecified site 924.9 Active 646153419 Problem Frostbite of hand 991.1 Active 47 35784 Problem Sprain and strain of unspecified site of hip and thigh 843.9 Active 48125223 Problem Concussion, with loss of consciousness of 30 minutes or le ss 850.11 Active 952217910 Problem Cough 786.2 Active 01410371 Problem Diarrhea 787.91 Active 31073961 Problem Fever, unspecified 780.60 Active 3 88318861 Problem Loss of weight 783.21 Active 61226 5001 Problem Unspecified gastritis and ga stroduodenitis without mention of hemorrhage 535.50 Active 293095596 Problem Acute bronchitis 466.0 Active 105 84012 Problem Acute upper respiratory infections of unspecified site 465.9 Active 23572437 Problem Intestinal infection due to other organism, NEC 008.8 Active 27114245 Problem Unspecified constipation 564.00 Activ e 80300636 Problem Viral diarrhea A08.4 Active 23465 003 Problem Other atopic dermatitis and related conditions 691.8 Active 627055911 Problem Encounter for long-term (current) use of other medications V58.69 Active 624880613 Problem Acute pharyngitis 462 Active 36 3256617 Problem Acute sinusitis, unspecified 461.9 A ctive 37675422 Problem Allergic rhinitis, cause unspecified 477.9 Active 36838502 Problem Nondependent cannabis abuse, unspecified 305.20 Active [id number] ALLERGIES No Information ENCOUNTERS Encounter Location Date Diagnosis [facility] [address] [facility] [id number] [address] [address] Apr, [facility] [address] [id number] [address] [place] [address], [place] [address] 17 Apr, 2019 Viral diarrhea A08.4 [facility] [address] [id number] [address] [place] [address], [place] [address] 13 Feb, 2015 [facility] [address] [id number] [address] [place] [address], [place] [address] Aug, [facility] [address] [id number] [address] [place] [address], [place] [address] Aug, [facility] [address] [id number] [address] [place] [address], [place] [address] May, [facility] [address] [id number] [address] [place] [address], [place] [address] May, [facility] [address] [place], [place] [id number] September, [facility] [address] [id number] [address] [place] [id number] September, [facility] [address] [id number] [address] [place] [id number] Apr, [facility] [address] [id number] [address] [place] [address], [place] [address] Apr, [facility] [address] [id number] [address] [place] [id number] Apr, [facility] [address] [id number] [address] [place] [address], [place] [address] Mar, [facility] [address] [id number] [address] [place] [id number] Mar, [facility] [address] [id number] [address] [place] [id number] Feb, [facility] [address] [id number] [address] [place] [address], [place] [address] Feb, [facility] [address] [place], [place] [id number] 15 Feb, 2013 [facility] [address] [id number] [address] [place] [address], [place] [address] 15 Feb, 2013 [facility] [address] [place] [id number] 57 Feb, [facility] [address] [id number] [address] [place] [address], [place] [address] 08 Feb, 2012 [facility] [address] [id number] [address] [place] [address], [place] [address] 17 Jan, 2012 [facility] [address] [id number] [address] [place] [address], [place] [address] 17 Jan, 2012 [facility] [address] [id number] [address] [place] [address], [place] [address] 14 Jan, 2012 [facility] [address] [id number] [address] [place] [address], [place] [address] Dec, [facility] [address] [id number] [address] [place] [address], [place] [id number] 16 Dec, 2011 [facility] [address] [id number] [address] [place] [address], [place] [address] Dec, [facility] [address] [id number] [address] [place] [address], [place] [address] Dec, [facility] [address] [id number] [address] [place] [address], [place] [address] Dec, [facility] [address] [id number] [address] [place] [address], [place] [address] Nov, [facility] [address] [id number] [address] [place] [address], [place] [id number] Nov, [facility] [address] [id number] [address] [place] [address], [place] [address] Nov, [facility] [address] [id number] [address] [place] [address], [place] [address] Nov, [facility] [address] [id number] [address] [place] [address], [place] [address] Oct, [facility] [address] [id number] [address] [place] [address], [place] [address] 27 Oct, 2011 [facility] [address] [id number] [address] [place] [address], [place] [address] Oct, [facility] [address] [id number] [address] [place] [address], [place] [id number] 07 Oct, 2011 [facility] [address] [id number] [address] [place] [address], [place] [address] Oct, [facility] [address] [id number] [address] [place] [address], [place] [address] Oct, [facility] [address] [id number] [address] [place] [address], [place] [address] September, [facility] [address] [id number] [address] [place] [address], [place] [address] September, [facility] [address] [id number] [address] [place] [address], [place] [address] September, [facility] [address] [id number] [address] [place] [address], [place] [address] September, [facility] [address] [id number] [address] [place] [address], [place] [address] September, [facility] [address] [id number] [address] [place] [address], [place] [address] September, [facility] [address] [id number] [address] [place] [address], [place] [address] September, [facility] [address] [id number] [address] [place] [address], [place] [address] Aug, [facility] [address] [id number] [address] [place] [address], [place] [address] Aug, [facility] [address] [id number] [address] [place] [address], [place] [address] Aug, [facility] [address] [id number] [address] [place] [address], [place] [address] Aug, [facility] [address] [id number] [address] [place] [address], [place] [address] Aug, [facility] [address] [id number] [address] [place] [address], [place] [address] Jul, [facility] [address] [id number] [address] [place] [address], [place] [address] Jul, [facility] [address] [id number] [address] [place] [address], [place] [address] Jul, [facility] [address] [id number] [address] [place] [address], [place] [address] Jun, [facility] [address] [id number] [address] [place] [address], [place] [id number] Jun, [facility] [address] [id number] [address] [place] [address], [place] [address] Jun, [facility] [address] [id number] [address] [place] [address], [place] [address] Jun, [facility] [address] [id number] [address] [place] [address], [place] [address] Jun, [facility] [address] [id number] [address] [place] [address], [place] [address] Jun, [facility] [address] [id number] [address] [place] [address], [place] [address] Jun, [facility] [address] [id number] [address] [place] [address], [place] [address] May, [facility] [address] [id number] [address] [place] [address], [place] [address] May, [facility] [address] [id number] [address] [place] [address], [place] [address] May, [facility] [address] [id number] [address] [place] [address], [place] [address] May, [facility] [address] [id number] [address] [place] [address], [place] [address] 13 May, 2011 [facility] [address] [id number] [address] [place] [address], [place] [address] 11 May, 2011 [facility] [address] [id number] [address] [place] [address], [place] [address] 04 May, 2011 [facility] [address] [id number] [address] [place] [address], [place] [address] 03 May, 2011 [facility] [address] [id number] [address] [place] [address], [place] [address] 28 Apr, 2011 [facility] [address] [id number] [address] [place] [address], [place] [address] 26 Apr, 2011 [facility] [address] [id number] [address] [place] [address], [place] [address] 14 Apr, 2011 [facility] [address] [id number] [address] [place] [address], [place] [address] 14 Apr, 2011 [facility] [address] [id number] [address] [place] [address], [place] [address] 12 Apr, 2011 [facility] [address] [id number] [address] [place] [address], [place] [address] 09 Apr, 2011 [facility] [address] [id number] [address] [place] [address], [place] [address] 29 Mar, 2011 [facility] [address] [id number] [address] [place] [address], [place] [address] 28 Mar, 2011 [facility] [address] [id number] [address] [place] [address], [place] [address] 23 Mar, 2011 [facility] [address] [id number] [address] [place] [address], [place] [address] 15 Mar, 2011 [facility] [address] [id number] [address] [place] [address], [place] [id number] 15 Mar, 2011 [facility] [address] [id number] [address] [place] [address], [place] [address] Feb, [facility] [address] [id number] [address] [place] [address], [place] [address] Feb, [facility] [address] [id number] [address] [place] [address], [place] [address] Feb, [facility] [address] [id number] [address] [place] [address], [place] [address] Feb, [facility] [address] [id number] [address] [place] [address], [place] [address] Feb, [facility] [address] [id number] [address] [place] [address], [place] [address] Feb, [facility] [address] [id number] [address] [place] [address], [place] [address] Feb, [facility] [address] [id number] [address] [place] [address], [place] [address] Feb, [facility] [address] [id number] [address] [place] [address], [place] [address] Feb, [facility] [address] [id number] [address] [place] [address], [place] [address] Feb, [facility] [address] [id number] [address] [place] [address], [place] [address] September, [facility] [address] [id number] [address] [place] [address], [place] [address] Jul, [facility] [address] [id number] [address] [place] [address], [place] [address] May, [facility] [address] [id number] [address] [place] [address], [place] [address] Apr, [facility] [address] [id number] [address] [place] [address], [place] [address] Apr, [facility] [address] [id number] [address] [place] [address], [place] [address] Apr, [facility] [address] [id number] [address] [place] [id number] 10 Apr, 2010 [facility] [address] [id number] [address] [place] [id number] 10 Apr, 2010 [facility] [address] [id number] [address] [place] [id number] Apr, [facility] [address] [id number] [address] [place] [id number] Mar, [facility] [address] [id number] [address] [place] [id number] Mar, [facility] [address] [id number] [address] [place] [id number] 16 Mar, 2010 [facility] [address] [id number] [address] [place] [id number] 16 Mar, 2010 [facility] [address] [id number] [address] [place] [id number] 14 Oct, 2009 [facility] [address] [id number] [address] [place] [id number] Mar, [facility] [address] [id number] [address] [place] [id number] Feb, [facility] [address] [id number] [address] [place] [id number] Mar, [facility] [address] [id number] [address] [place] [id number] September, [facility] [address] [id number] [address] [place] [id number] September, IMMUNIZATIONS No Known Immunizations SOCIAL HISTORY Never Assessed REASON FOR VISIT PLAN OF CARE VITAL SIGNS MEDICATIONS Unknown Medications RESULTS No Results PROCEDURES No Known procedures INSTRUCTIONS MEDICATIONS ADMINISTERED No Known Medications
--- OUTSIDE RECORDS SUMMARY | 2019-12-21 17:18 | XMS REPORT ---
Author Author Quinten Alanis Doctor Organization [facility] Address Unknown Phone Unavailable Care Team Providers Care [employer] Dispatcher Name Role Phone Migration, Doctor Unavailable Unavailable PROBLEMS Type Condition ICD9-CM Code [id number] Code Onset Dates Condition S tatus SNOMED Code Problem Contusion of unspecified site 924.9 Active 726722839 Problem Frostbite of hand 991.1 Active 47 50285 Problem Sprain and strain of unspecified site of hip and thigh 843.9 Active 79470095 Problem Concussion, with loss of consciousness of 30 minutes or le ss 850.11 Active 771061564 Problem Cough 786.2 Active 97993924 Problem Diarrhea 787.91 Active 09753054 Problem Fever, unspecified 780.60 Active 3 69417796 Problem Loss of weight 783.21 Active 61948 5001 Problem Unspecified gastritis and ga stroduodenitis without mention of hemorrhage 535.50 Active 823053776 Problem Acute bronchitis 466.0 Active 105 51347 Problem Acute upper respiratory infections of unspecified site 465.9 Active 03959061 Problem Intestinal infection due to other organism, NEC 008.8 Active 58721210 Problem Unspecified constipation 564.00 Activ e 70163767 Problem Viral diarrhea A08.4 Active 11617 003 Problem Other atopic dermatitis and related conditions 691.8 Active 027029033 Problem Encounter for long-term (current) use of other medications V58.69 Active 810481202 Problem Acute pharyngitis 462 Active 36 9326672 Problem Acute sinusitis, unspecified 461.9 A ctive 63871227 Problem Allergic rhinitis, cause unspecified 477.9 Active 89050916 Problem Nondependent cannabis abuse, unspecified 305.20 Active 479754976 ALLERGIES No Information ENCOUNTERS Encounter Location Date Diagnosis [facility] [address] [facility] [id number] [address] [place] [phone] Apr, [facility] [address] [facility] [id number] [address] [place] [phone] Apr, Viral diarrhea A08.4 [facility] [address] [id number] [address] [place] [address], [place] [phone] 13 Feb, 2015 [facility] [address] [id number] [address] [place] [phone] 14 Aug, 2014 [facility] [address] [id number] [address] [place] [address], [place] [phone] Aug, [facility] [address] [id number] [address] [place] [phone] May, [facility] [address] [id number] [address] [place] [address], [place] [address] May, [facility] [address] [facility] [place] [id number] 57 September, [facility] [address] [id number] [address] [place] [phone] September, [facility] [address] [id number] [address] [place] [phone] Apr, [facility] [address] [id number] [address] [place] [phone] Apr, [facility] [address] [id number] [address] [place] [phone] Apr, [facility] [address] [id number] [address] [place] [phone] Mar, [facility] [address] [id number] [address] [place] [phone] Mar, [facility] [address] [id number] [address] [place] [phone] Feb, [facility] [address] [id number] [address] [place] [address], [place] [phone] Feb, [facility] [address] [place], [place] [id number] 57 Feb, [facility] [address] [id number] [address] [place] [phone] Feb, [facility] [address] [place] [id number] 08 Feb, 2013 [facility] [address] [id number] [address] [place] [address], [place] [phone] 08 Feb, 2012 [facility] [address] [id number] [address] [place] [address], [place] [phone] 17 Jan, 2012 [facility] [address] [id number] [address] [place] [address], [place] [phone] 17 Jan, 2012 [facility] [address] [id number] [address] [place] [address], [place] [id number] 14 Jan, 2012 [facility] [address] [id number] [address] [place] [address], [place] [phone] 17 Dec, 2011 [facility] [address] [id number] [address] [place] [address], [place] [id number] 16 Dec, 2011 [facility] [place] [address] [id number] [address] [place] [address], [place] [id number] 14 Dec, 2011 [facility] [place] [address] [id number] [address] [place] [address], [place] [id number] Dec, [facility] [place] [address] [id number] [address] [place] [address], [place] [phone] Dec, [facility] [address] [id number] [address] [place] [address], [place] [phone] Nov, [facility] [place] [address] [id number] [address] [place] [address], [place] [phone] Nov, [facility] [address] [id number] [address] [place] [address], [place] [phone] Nov, [facility] [address] [id number] [address] [place] [address], [place] [phone] Nov, [facility] [address] [id number] [address] [place] [address], [place] [phone] Oct, [facility] [address] [id number] [address] [place] [address], [place] [id number] Oct, [facility] [place] [address] [id number] [address] [place] [address], [place] [phone] Oct, [facility] [address] [id number] [address] [place] [address], [place] [phone] Oct, [facility] [address] [id number] [address] [place] [address], [place] [phone] Oct, [facility] [address] [id number] [address] [place] [address], [place] [id number] Oct, [facility] [address] [id number] [address] [place] [address], [place] [phone] September, [facility] [address] [id number] [address] [place] [address], [place] [phone] September, [facility] [address] [id number] [address] [place] [address], [place] [phone] September, [facility] [address] [id number] [address] [place] [address], [place] [phone] September, [facility] [address] [id number] [address] [place] [address], [place] [phone] September, [facility] [address] [id number] [address] [place] [address], [place] [phone] September, [facility] [address] [id number] [address] [place] [address], [place] [phone] September, [facility] [address] [id number] [address] [place] [address], [place] [phone] Aug, [facility] [address] [id number] [address] [place] [address], [place] [phone] Aug, [facility] [address] [id number] [address] [place] [address], [place] [id number] 16 Aug, 2011 [facility] [address] [id number] [address] [place] [address], [place] [phone] Aug, [facility] [address] [id number] [address] [place] [address], [place] [phone] 05 Aug, 2011 [facility] [place] [address] [id number] [address] [place] [address], [place] [phone] Jul, [facility] [address] [id number] [address] [place] [address], [place] [phone] Jul, [facility] [address] [id number] [address] [place] [address], [place] [phone] Jul, [facility] [address] [id number] [address] [place] [address], [place] [phone] Jun, [facility] [address] [id number] [address] [place] [address], [place] [phone] Jun, [facility] [address] [id number] [address] [place] [address], [place] [phone] Jun, [facility] [address] [id number] [address] [place] [address], [place] [phone] Jun, [facility] [address] [id number] [address] [place] [address], [place] [phone] Jun, [facility] [address] [id number] [address] [place] [address], [place] [phone] Jun, [facility] [address] [id number] [address] [place] [address], [place] [phone] Jun, [facility] [address] [id number] [address] [place] [address], [place] [phone] May, [facility] [address] [id number] [address] [place] [address], [place] [phone] May, [facility] [address] [id number] [address] [place] [address], [place] [phone] May, [facility] [address] [id number] [address] [place] [address], [place] [address] May, [facility] [address] [id number] [address] [place] [address], [place] [address] May, [facility] [address] [id number] [address] [place] [address], [place] [address] May, [facility] [address] [id number] [address] [place] [address], [place] [phone] May, [facility] [address] [id number] [address] [place] [address], [place] [phone] May, [facility] [address] [id number] [address] [place] [address], [place] [phone] Apr, [facility] [address] [id number] [address] [place] [address], [place] [phone] Apr, [facility] [address] [id number] [address] [place] [address], [place] [phone] Apr, [facility] [address] [id number] [address] [place] [address], [place] [phone] Apr, [facility] [address] [id number] [address] [place] [address], [place] [phone] Apr, [facility] [address] [id number] [address] [place] [address], [place] [address] Apr, [facility] [address] [id number] [address] [place] [address], [place] [id number] 29 Mar, 2011 [facility] [address] [id number] [address] [place] [address], [place] [address] 28 Mar, 2011 [facility] [address] [id number] [address] [place] [address], [place] [id number] 23 Mar, 2011 [facility] [address] [id number] [address] [place] [address], [place] [phone] 15 Mar, 2011 [facility] [address] [id number] [address] [place] [address], [place] [id number] 15 Mar, 2011 [facility] [address] [id number] [address] [place] [address], [place] [address] 31 Feb, 2011 [facility] [address] [id number] [address] [place] [address], [place] [phone] 31 Feb, 2011 [facility] [address] [id number] [address] [place] [address], [place] [address] Feb, [facility] [address] [id number] [address] [place] [address], [place] [address] Feb, [facility] [address] [id number] [address] [place] [address], [place] [address] Feb, [facility] [address] [id number] [address] [place] [address], [place] [phone] Feb, [facility] [address] [id number] [address] [place] [address], [place] [phone] Feb, [facility] [address] [id number] [address] [place] [address], [place] [address] Feb, [facility] [address] [id number] [address] [place] [address], [place] [phone] Feb, [facility] [address] [id number] [address] [place] [address], [place] [address] Feb, [facility] [address] [id number] [address] [place] [address], [place] [phone] September, [facility] [address] [id number] [address] [place] [address], [place] [address] Jul, [facility] [address] [id number] [address] [place] [address], [place] [address] May, [facility] [address] [id number] [address] [place] [phone] Apr, [facility] [address] [id number] [address] [place] [address], [place] [address] Apr, [facility] [address] [id number] [address] [place] [address], [place] [phone] Apr, [facility] [address] [id number] [address] [place] [address], [place] [address] Apr, [facility] [address] [id number] [address] [place] [phone] 10 Apr, 2010 [facility] [address] [id number] [address] [place] [phone] Apr, [facility] [address] [id number] [address] [place] [phone] Mar, [facility] [address] [id number] [address] [place] [phone] Mar, [facility] [address] [id number] [address] [place] [phone] Mar, [facility] [address] [id number] [address] [place] [phone] Mar, [facility] [address] [id number] [address] [place] [phone] Oct, [facility] [address] [id number] [address] [place] [phone] Mar, [facility] [address] [id number] [address] [place] [phone] Feb, [facility] [address] [id number] [address] [place] [phone] Mar, [facility] [address] [id number] [address] [place] [phone] September, [facility] [address] [id number] [address] [place] [phone] September, IMMUNIZATIONS No Known Immunizations SOCIAL HISTORY Never Assessed REASON FOR VISIT PLAN OF CARE VITAL SIGNS Height 71 in 2011-11-12 Weight 162 lbs 2011-11-12 Heart Rate 88 bpm 2011-11-12 Respiratory Rate 20 2011-11-12 Blood pressure systolic 122 mmHg 2011-11-12 Blood pressure diastolic 80 mmHg 2011-11-12 MEDICATIONS Unknown Medications RESULTS No Results PROCEDURES Procedure Date Ordered Result Body Site DRUG SCREEN, QUALITATE/MULTI November 12, 2011 INSTRUCTIONS MEDICATIONS ADMINISTERED No Known Medications
--- OUTSIDE RECORDS SUMMARY | 2019-12-21 17:19 | XMS REPORT ---
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 No focal osseouslesions are demonstrated. Released By TIEN HIDALGO, MDDate: 05/23/2018 16:43 Vital Signs Vitals Value Date Body Temperature 98.4 F 05/23/2018 Respiratory Rate 20 05/23/2018 O2% BldC Oximetry 100 05/23/2018 BP Systolic 106 mmHg 05/23/2018 BP Diastolic 77 mmHg 05/23/2018 Height 73 in 05/23/2018 Weight Measured 175 lbs 05/23/2018 BSA (Body Surface Area) 2.29252 05/23/2018 BMI (Body Mass Index) 23.1 05/23/2018 Plan of Care * No data in the system Procedures Code Code System Procedure Name Target Site Date of Proce dure INCISION AND DRAINAGE 8 9726754 SNOMED Triad knee repair Unknown Encounters * No data in the system Immunizations * No data in the system Functional Status * No data in the system Hospital Discharge Instructions * No data in the system
--- OUTSIDE RECORDS SUMMARY | 2019-12-21 17:19 | XMS REPORT ---
Author Author [employer] Organization [employer] Address [address] [place] [address] ;ext= Care Team Providers Care Hearing Aid Consultant Name Role Phone DESMONDREYDENISE Admphys Unavailable DENISE LOGAN Attphybutch Unavailable Hospital Admission Diagnosis Code Admission Diagnosis Date 5838782 Contusion of hand Social History Element Description Code Description Smoking Status Code System Start Date End Date Smoking Status 269606679 Current every day smoker SNOMED-CT Problems Code Code System Problem Name Start Date End Date S tatus 42253392 SNOMED-CT Bipolar disorder Unknown Active 046151101 SNOMED-CT 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 137644371 SNOMED-CT Attention deficit hyperactivity disorder Unknow n Active 41322699 SNOMED-CT Anxiety Unknown Active 592421201 SNOMED-CT Acid reflux Unknown Active Medications RxNorm Medication Dose Route Instructions Indication s Start Date End Date Status 7646 Omeprazole 20 milligram oral orally daily (unsure of dosage) Active Allergies * No Known Allergies Results Radiology Results Order: [id number] Hand RT 3 views* Exam Completion Date:05/23/2018 [...] 175 lbs 05/23/2018 BSA (Body Surface Area) 2.76744 05/23/2018 BMI (Body Mass Index) 23.1 05/23/2018 Plan of Care * No data in the system Procedures Code Code System Procedure Name Target Site Date of Proce dure INCISION AND DRAINAGE 8 5535690 SNOMED Triad knee repair Unknown Encounters Date Code Diagnosis Status (ICD10) - [id number] CONTUSION RIGHT HAND INITIAL ENC Active Immunizations * No data in the system Functional Status * No data in the system Hospital Discharge Instructions * No data in the system
--- OUTSIDE RECORDS SUMMARY | 2019-12-21 17:21 | XMS REPORT | Continuity of Care Document ---
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 NAUSEA WITH VOMITING, UNSPECIFIED 01/25/2016 REJI LUCIO MD Other K02.9 DENTAL CARIES, UNSPECIFIED 01/25/2016 REJI LUCIO MD Other K08.8 OTHER SPECIFIED DISORDERS OF TEETH AND SUPPORTING STRUCTURES 01/26/2016 LYNDA BRANDT MD Other K08.8 OTHER SPECIFIED DISORDERS OF TEETH AND SUPPORTING STRU CTURES 01/27/2016 MACHO RICHTER MD Other K08.8 OTHER SPECIFIED DISORDERS OF TEETH AND SUPPORTING STRU CTURES 01/27/2016 MACHO RICHTER MD Other R22.0 LOCALIZED SWELLING, MASS AND LUMP, HEAD 03/13/2016 DENNIS FERNANDEZ MD Other S83.8X2D SPRAIN OF OTHER SPECIFIED PARTS OF LEFT KNEE, SUBS ENC NTR 04/11/2016 DENNIS FERNANDEZ MD DG S83.8X2D SPRAIN OF OTHER SPECIFIED PARTS OF LEFT KNEE, SUBS 09/03/2016 SENA TOBAR MD Other E87.3 ALKALOSIS 09/03/2016 SENA TOBAR MD Other 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 09/03/2016 SENA TOBAR MD Other R40.4 TRANSIENT ALTERATION OF AWARENESS 09/24/2016 LYNDA BRANDT MD Other G89.11 ACUTE PAIN DUE TO TRAUMA 09/24/2016 LYNDA BRANDT MD Other S60.221A CONTUSION OF RIGHT HAND, INITIAL ENCOUNTER 09/24/2016 LYNDA BRANDT MD Other W22.8XXA STRIKING AGAINST OR STRUCK BY OTHER OBJECTS, INIT ENCN TR 09/24/2016 LYNDA BRANDT MD Other Y92.[address] OR NOT APPLICABLE 09/24/2016 LYNDA BRANDT MD Other Y99.8 OTHER EXTERNAL CAUSE STATUS 10/21/2016 SENA TOBAR MD Other 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 10/21/2016 SENA TOBAR MD Other R 32 UNSPECIFIED URINARY INCONTINENCE 11/30/2016 FOZIA PURI DO Other F12.10 CANNABIS ABUSE, UNCOMPLICATED 11/30/2016 FOZIA PURI DO Other F15.10 OTHER STIMULANT ABUSE, UNCOMPLICATED 11/30/2016 FOZIA PURI DO Other F31.9 BIPOLAR DISORDER, UNSPECIFIED 11/30/2016 FOZIA PURI DO Other F41.9 ANXIETY DISORDER, UNSPECIFIED 11/30/2016 FOZIA PURI DO Other F90.9 ATTENTION-DEFICIT HYPERACTIVITY DISORDER, UNSPECIFIED TYPE 11/30/2016 FOZIA PURI DO Other K21.9 GASTRO-ESOPHAGEAL REFLUX DISEASE WITHOUT ESOPHAGITIS 11/30/2016 FOZIA PURI DO Other R45.851 SUICIDAL IDEATIONS 11/30/2016 FOZIA PURI DO Other Z20.2 CONTACT W AND EXPOSURE TO INFECT W A SEXL MODE OF XIE SMISS 11/30/2016 FOZIA PURI DO Other Z80.9 FAMILY HISTORY OF MALIGNANT NEOPLASM, UNSPECIFIED 11/30/2016 FOZIA PURI DO Other Z82.49 FAMILY HX OF ISCHEM HEART DIS AND OTH DIS OF THE CIRC SYS 11/30/2016 FOZIA PURI DO Other Z83.3 FAMILY HISTORY OF DIABETES MELLITUS 02/28/2017 MACHO RICHTER MD Other F32.2 MAJOR DEPRESSV DISORD, SINGLE EPSD, SEV W/O PSYCH FEAT URES 02/28/2017 MACHO RICHTER MD Other R45.851 SUICIDAL IDEATIONS 02/28/2017 MACHO RICHTER MD Other X58.XXXA EXPOSURE TO OTHER SPECIFIED FACTORS, INITIAL ENCOUNTER 02/28/2017 MACHO RICHTER MD Other Y92.[address] OR NOT APPLICABLE 02/28/2017 NEELAM CHISHOLM, MACHO Wolfe Other Y99.8 OTHER EXTERNAL CAUSE STATUS 03/03/2017 JOCELYN IRBY MD Other F41.1 GENERALIZED ANXIETY DISORDER 03/03/2017 JOCELYN IRBY MD Other M54.6 PAIN IN THORACIC SPINE 03/04/2017 ASHLYN LAWRENCE MD Other M54.6 PAIN IN THORACIC SPINE 03/04/2017 ASHLYN LAWRENCE MD Other R07.89 OTHER CHEST PAIN 04/02/2017 ASHLYN LAWRENCE MD Other F17.200 NICOTINE DEPENDENCE, UNSPECIFIED, UNCOMPLICATED 04/02/2017 ASHLYN LAWRENCE MD Other F31.9 BIPOLAR DISORDER, UNSPECIFIED 04/02/2017 ASHLYN LAWRENCE MD Other F41.9 ANXIETY DISORDER, UNSPECIFIED 04/02/2017 ASHLYN LAWRENCE MD Other F43.29 ADJUSTMENT DISORDER WITH OTHER SYMPTOMS 04/02/2017 ASHLYN LAWRENCE MD Other F90.9 ATTENTION-DEFICIT HYPERACTIVITY DISORDER, UNSPECIFIED TYPE 04/02/2017 ASHLYN LAWRENCE MD Other R45.851 SUICIDAL IDEATIONS 04/02/2017 ASHLYN LAWRENCE MD Other S69.91XA UNSP INJURY OF RIGHT WRIST, HAND AND FINGER(S), INIT E NCNTR 04/02/2017 ASHLYN LAWRENCE MD Other Z63.4 DISAPPEARANCE AND OF FAMILY MEMBER 04/02/2017 ASHLYN LAWRENCE MD Other Z79.899 OTHER SENIOR LIVING (CURRENT) DRUG THERAPY 04/02/2017 ASHLYN LAWRENCE MD Other Z80.3 FAMILY HISTORY OF MALIGNANT NEOPLASM OF BREAST 04/02/2017 ASHLYN LAWRENCE MD Other Z81.8 FAMILY HISTORY OF OTHER MENTAL AND BEHAVIORAL DISORDER S 04/02/2017 ASHLYN LAWRENCE MD Other Z82.49 FAMILY HX OF ISCHEM HEART DIS AND OTH DIS OF THE CIRC SYS 04/02/2017 ASHLYN LAWRENCE MD Other Z83.3 FAMILY HISTORY OF DIABETES MELLITUS 10/15/2017 OTF YOUNG MD Other F15.10 OTHER STIMULANT ABUSE, UNCOMPLICATED 10/15/2017 OTF YOUNG MD Other F17.210 NICOTINE DEPENDENCE, CIGARETTES, UNCOMPLICATED 10/15/2017 OTF YOUNG MD Other F41.8 OTHER SPECIFIED ANXIETY DISORDERS 10/15/2017 OTF YOUNG MD Other F90.9 ATTENTION-DEFICIT HYPERACTIVITY DISORDER, UNSPECIFIED TYPE 10/15/2017 OTF YOUNG MD Other R53.83 OTHER FATIGUE 10/15/2017 OTF YOUNG MD Other T43.222A POISN BY SLCTV SEROTONIN REUPTAKE INHIBTR, SELF-HARM, INIT 10/15/2017 OTF YOUNG MD Other T43.592A POISONING BY OTH ANTIPSYCHOT/NEUROLEPT, SELF-HARM, INI T 10/15/2017 OTF YOUNG MD Other Y92.[address] IN SINGLE-FAMILY (PRIVATE) HOUSE PLACE 10/18/2017 JASMINE BENTLEY MD Other F12.90 CANNABIS USE, UNSPECIFIED, UNCOMPLICATED 10/18/2017 JASMINE BENTLEY MD Other F15.90 OTHER STIMULANT USE, UNSPECIFIED, UNCOMPLICATED 10/18/2017 JASMINE BENTLEY MD Other F17.210 NICOTINE DEPENDENCE, CIGARETTES, UNCOMPLICATED 10/18/2017 JASMINE BENTLEY MD Other F32.9 MAJOR DEPRESSIVE DISORDER, SINGLE EPISODE, UNSPECIFIED 10/18/2017 JASMINE BENTLEY MD Other 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 10/18/2017 JASMINE BENTLEY MD Other K21.9 GASTRO-ESOPHAGEAL REFLUX DISEASE WITHOUT ESOPHAGITIS 10/18/2017 JASMINE BENTLEY MD Other T43.222D POISN BY SLCTV SEROTONIN REUPTAKE INHIBTR, SELF-HARM, SUBS 10/18/2017 JASMINE BENTLEY MD Other T43.592D POISONING BY OTH ANTIPSYCHOT/NEUROLEPT, SELF-HARM, SUB S 10/18/2017 JASMINE BENTLEY MD Other Z59.0 HOMELESSNESS 10/18/2017 JASMINE BENTLEY MD Other Z65.2 PROBLEMS RELATED TO RELEASE FROM GROUP HOME 10/18/2017 JASMINE BENTLEY MD Other Z81.8 FAMILY HISTORY OF OTHER MENTAL AND BEHAVIORAL DISORDER S 10/18/2017 JASMINE BENTLEY MD Other Z91.5 PERSONAL HISTORY OF SELF-HARM 10/26/2017 EKATERINA CHISHOLM, SENA Other Z20.2 CONTACT W AND EXPOSURE TO INFECT W A SEXL MODE OF XIE SMISS 02/07/2018 F B95.62 02/07/2018 F F17.210 02/07/2018 F K21.9 02/07/2018 F L02.511 02/07/2018 F L03.011 02/07/2018 F M65.141 02/07/2018 A M79.89 02/07/2018 F S61.232A 02/07/2018 F S63.692A 02/07/2018 F X98.8XXA 02/07/2018 F Z16.19 02/07/2018 F Z59.0 02/07/2018 F Z65.3 05/01/2018 Other M65.9 M 65.9 - Synovitis and tenosynovitis, unspecified 05/01/2018 Other M65.9 M 65.9 - Synovitis and tenosynovitis, unspecified 06/07/2018 Other M79.89 M79.89 - Other specified soft tissue disorders 08/11/2018 DENISE LOGAN F17.21 0 NICOTINE DEPENDENCE, CIGARETTES, UNCOMPLICATED 08/11/2018 DENISE LOGAN P S60.22 1A CONTUSION OF RIGHT HAND, INITIAL ENCOUNTER 08/11/2018 DENISE LOGAN X58.XX XA EXPOSURE TO OTHER SPECIFIED FACTORS, INITIAL ENCOUNTER 08/11/2018 DENISE LOGAN Y92.[address] IN UNSPECIFIED NON-INSTITUTIONAL (PRIVATE) RESIDENCE THE PLACE OF OCCURRENCE OF THE EXTERNAL CAUSE 04/17/2019 YONATAN VALENZUELA APRN Ot F17.290 NICOTINE DEPENDENCE, OTHER TOBACCO PRODU 04/17/2019 YONATAN VALENZUELA APRN Ot F31 .9 BIPOLAR DISORDER, UNSPECIFIED 04/17/2019 YONATAN VALENZUELA APRN Ot F41 .9 ANXIETY DISORDER, UNSPECIFIED 04/17/2019 YONATAN VALENZUELA APRN Ot F90 .9 ATTENTION-DEFICIT HYPERACTIVITY DISORDER 04/17/2019 YONATAN VALENZUELA APRN Ot K21 .9 GASTRO-ESOPHAGEAL REFLUX DISEASE WITHOUT 04/17/2019 YONATAN VALENZUELA APRN Ot R11 .2 NAUSEA WITH VOMITING, UNSPECIFIED 04/17/2019 YONATAN VALENZUELA APRN Ot R19 .7 DIARRHEA, UNSPECIFIED 04/17/2019 YONATAN VALENZUELA APRN Ot Z88 .0 ALLERGY STATUS TO PENICILLIN Procedures Code Description Performed By Per formed On [facility] 02/17/2013 [id number] ARMACOTHERAPY FOR SUBSTANCE ABUSE, NICOTINE REPL 04/2018 [id number] 02/07/2018 [id number] 02/07/2018 [id number] 02/19/2018 [id number] 02/19/2018 Results Test Result Range CBCDIFF - 10/13/17 21:50 WHITE BLOOD COUNT 7.6 10E3/UL 4.0-11.0 RED BLOOD COUNT 5.25 10E6/UL 4.50-5.90 HEMOGLOBIN 15.6 G/DL 13.5-17.5 HEMATOCRIT 44.3 % 41.0-53.0 MEAN CORPUSCULAR VOLUME 84.4 FL 82.0-1 00.0 MEAN CORPUSCULAR HEMOGLOBIN 29.7 PG 26 .0-34.0 MEAN CORPUSCULAR HGB CONC 35.2 G/DL 31.5 -36.5 RED CELL DISTRIBUTION WIDTH 11.9 % 11 .5-14.5 PLATELET COUNT 204 10E3/UL 150-450 MEAN PLATELET VOLUME 10.4 FL 8.2-12.4 NEUTROPHILS % (AUTO) 68 % 40-70 LYMPHOCYTES % (AUTO) 21 % 15-45 MONOCYTES % (AUTO) 10 % 2-10 EOSINOPHILS % (AUTO) 1 % 0-6 BASOPHILS % (AUTO) 1 % 0-1 NEUTROPHILS # (AUTO) 5.1 10E3/UL 2.5-7.5 LYMPHOCYTES # (AUTO) 1.6 10E3/UL 1.0-4.0 MONOCYTES # (AUTO) 0.7 10E3/UL 0.2-0.8 EOSINOPHILS # (AUTO) 0.0 10E3/UL 0.0-0.4 BASOPHILS # (AUTO) 0.1 10E3/UL 0.0-0.2 DIFF TYPE AUTOMATED NRG NUCLEATED RBCS (AUTO) 0 % 0-0 IMMATURE GRANS % (AUTO) 0 % 0-0 IMMATURE GRANS # (AUTO) 0.0 10E3/UL 0.0- 0.0 CMP - 10/13/17 21:50 GLUCOSE 99 MG/DL 70-110 BLOOD UREA NITROGEN 24 MG/DL 6-20 CREATININE 1.20 MG/DL 0.50-1.20 EST GLOMERULAR FILTRATION RATE >= 60 >=60 SODIUM 136 MMOL/L 135-145 POTASSIUM 3.7 MMOL/L 3.6-5.0 CHLORIDE 100 MMOL/L 101-111 CO2 24 MMOL/L 21-31 ANION GAP 16 8-18 OSMO CALCULATED 276.0 270.0-290.0 CALCIUM 9.2 MG/DL 8.5-10.5 BILIRUBIN,TOTAL 0.8 MG/DL 0.1-1.2 ALKALINE PHOSPHATASE 56 IU/L 42-121 TOTAL PROTEIN 8.1 G/DL 6.4-8.2 ALBUMIN 5.2 G/DL 3.5-5.5 GLOBULIN 2.9 2.4-3.6 ALBUMIN/GLOBULIN RATIO 1.8 RATIO 0.9-1.8 BC RATIO 20.0 RATIO 10.0-20.0 AST (SGOT) 29 IU/L 10-42 ALT (SGPT) 22 IU/L 10-60 ACTMN - 10/13/17 21:50 ACETAMINOPHEN < 10.0 UG/ML 10 SALI - 10/13/17 21:50 SALICYLATE < 4 MG/DL 09-01 MAYELA - 10/13/17 23:36 OPIATE SCREEN,URINE NEGATIVE NEGATIVE BARBITURATES SCREEN, URINE NEGATIVE NEG ATIVE AMPHETAMINE SCREEN,URINE PRESUMPTIVE POSITIVE NEGATIVE BENZODIAZEPINES SCREEN,URINE NEGATIVE N EGATIVE COCAINE SCREEN, URINE NEGATIVE NEGATIVE CANNABINOID SCREEN,URINE NEGATIVE NEGAT UMA Vital Signs - 10/14/17 09:25 Temperature (Fahrenheit) 98.6 NRG Weight 74.0000 kg NRG Temperature Source Temporal Artery NRG Blood Pressure Source Automatic Cuff NR G O2 Sat by Pulse Oximetry 97 NRG Pulse Rate (adult) 70 NRG Respiratory Rate 22 NRG Blood Pressure Systolic 117 NRG Blood Pressure Diastolic 72 NRG Blood Pressure Mean 83 NRG Vital Signs - 10/14/17 09:25 Height 185.819987 cm NRG Weight 75.8000 kg NRG Blood Pressure Source Automatic Cuff NR G O2 Sat by Pulse Oximetry 97 NRG Pulse Rate (adult) 70 NRG Respiratory Rate 22 NRG Blood Pressure Systolic 117 NRG Blood Pressure Diastolic 72 NRG Blood Pressure Mean 83 NRG Vital Signs - 10/14/17 09:30 Weight 74.0000 kg NRG Blood Pressure Source Automatic Cuff NR G O2 Sat by Pulse Oximetry 97 NRG Pulse Rate (adult) 80 NRG Respiratory Rate 22 NRG Blood Pressure Systolic 110 NRG Blood Pressure Diastolic 66 NRG Blood Pressure Mean 77 NRG Vital Signs - 10/14/17 09:30 Height 185.150541 cm NRG Weight 75.8000 kg NRG Blood Pressure Source Automatic Cuff NR G O2 Sat by Pulse Oximetry 97 NRG Pulse Rate (adult) 80 NRG Respiratory Rate 22 NRG Blood Pressure Systolic 110 NRG Blood Pressure Diastolic 66 NRG Blood Pressure Mean 77 NRG Vital Signs - 10/14/17 09:40 Height 185.802450 cm NRG Weight 75.8000 kg NRG Collect MRSA Swab if Patient has ANY of the Following: No Known Indicators NRG Vital Signs - 10/14/17 09:40 Height 185.094458 cm NRG Weight 75.8000 kg NRG Central Line in Place upon Arrival N NRG Urinary Catheter in Place upon Arrival N NRG Method of Transportation Wheelchair NRG Pertinent Items in Place Telemetry NRG Admitted From Emergency Dept NRG Date of Arrival on Unit [id number] NRG Patient in Custody? N NRG Time of Arrival on Unit 914 NRG Does Patient Have Any Weapons in Possession? N NRG Mode of Arrival Cart NRG Inpatient Admission/ Transfer Comment Admitt ed to [facility], ICU monitors applied NRG Vital Signs - 10/14/17 09:40 Height 185.691535 cm NRG Weight 75.8000 kg NRG Height (Calculated Centimeters) 185.713109 NRG Height (Feet) 6 NRG Height (Inches) 1.00 NRG Body Mass Index (BMI) 22.1 NRG Body Surface Area (BSA) 1.99 NRG Weight (Calculated Grams) 17775.000 N RG Weight (Kilograms) 75.8000 NRG Weight Measurement Method Built in [facility] NRG Vital Signs - 10/14/17 09:40 Height 185.652531 cm NRG Weight 75.8000 kg NRG Pain Scale Used Numeric Pain/FACES Scale NRG Pain Level Intensity 3 NRG Pain Location Head NRG Pain Description Aching NRG Vital Signs - 10/14/17 09:40 Height 185.888993 cm NRG Weight 75.8000 kg NRG Skin Risk Activity Assessment Walks Frequently NRG Skin Risk Friction Assessment No Apparent Problem NRG Skin Risk Mobility Assessment No Limitations NRG Skin Risk Moisture Assessment Rarely Moist NRG Skin Risk Nutrition Assessment Adequate NRG Skin Risk Sensory Perception Assessment No Impairm ent NRG Jonathan Skin Risk Assessment Score 22 NRG Vital Signs - 10/14/17 09:40 Height 185.591800 cm NRG Weight 75.8000 kg NRG Physical Indicators of Abuse or Neglect No Risk Id entified NRG Vital Signs - 10/14/17 09:45 Height 185.183216 cm NRG Weight 75.8000 kg NRG Blood Pressure Source Automatic Cuff NR G O2 Sat by Pulse Oximetry 99 NRG Pulse Rate (adult) 67 NRG Respiratory Rate 16 NRG Blood Pressure Systolic 101 NRG Blood Pressure Diastolic 62 NRG Blood Pressure Mean 74 NRG Vital Signs - 10/14/17 10:00 Height 185.236329 cm NRG Weight 75.8000 kg NRG Blood Pressure Source Automatic Cuff NR G O2 Sat by Pulse Oximetry 97 NRG Pulse Rate (adult) 87 NRG Respiratory Rate 19 NRG Blood Pressure Systolic 110 NRG Blood Pressure Diastolic 96 NRG Blood Pressure Mean 103 NRG Vital Signs - 10/14/17 10:15 Height 185.145767 cm NRG Weight 75.8000 kg NRG Blood Pressure Source Automatic Cuff NR G O2 Sat by Pulse Oximetry 97 NRG Pulse Rate (adult) 88 NRG Respiratory Rate 17 NRG Blood Pressure Systolic 114 NRG Blood Pressure Diastolic 68 NRG Blood Pressure Mean 81 NRG Vital Signs - 10/14/17 10:30 Height 185.113259 cm NRG Weight 75.8000 kg NRG Blood Pressure Source Automatic Cuff NR G O2 Sat by Pulse Oximetry 98 NRG Pulse Rate (adult) 96 NRG Respiratory Rate 18 NRG Blood Pressure Systolic 114 NRG Blood Pressure Diastolic 68 NRG Blood Pressure Mean 81 NRG Vital Signs - 10/14/17 10:45 Height 185.907336 cm NRG Weight 75.8000 kg NRG Blood Pressure Source Automatic Cuff NR G O2 Sat by Pulse Oximetry 97 NRG Pulse Rate (adult) 73 NRG Respiratory Rate 18 NRG Blood Pressure Systolic 86 NRG Blood Pressure Diastolic 74 NRG Blood Pressure Mean 80 NRG Vital Signs - 10/14/17 10:47 Height 185.863502 cm NRG Weight 75.8000 kg NRG Blood Pressure Source Automatic Cuff NR G O2 Sat by Pulse Oximetry 98 NRG Pulse Rate (adult) 79 NRG Respiratory Rate 21 NRG Blood Pressure Systolic 109 NRG Blood Pressure Diastolic 56 NRG Blood Pressure Mean 71 NRG Vital Signs - 10/14/17 11:00 Height 185.405608 cm NRG Weight 75.8000 kg NRG Blood Pressure Source Automatic Cuff NR G O2 Sat by Pulse Oximetry 97 NRG Pulse Rate (adult) 73 NRG Respiratory Rate 20 NRG Blood Pressure Systolic 104 NRG Blood Pressure Diastolic 67 NRG Blood Pressure Mean 78 NRG Vital Signs - 10/14/17 11:15 Height 185.317050 cm NRG Weight 75.8000 kg NRG O2 Sat by Pulse Oximetry 97 NRG Pulse Rate (adult) 67 NRG Respiratory Rate 20 NRG Vital Signs - 10/14/17 11:30 Height 185.542770 cm NRG Weight 75.8000 kg NRG Blood Pressure Source Automatic Cuff NR G O2 Sat by Pulse Oximetry 97 NRG Pulse Rate (adult) 67 NRG Respiratory Rate 19 NRG Blood Pressure Systolic 103 NRG Blood Pressure Diastolic 52 NRG Blood Pressure Mean 68 NRG Vital Signs - 10/14/17 11:45 Height 185.464104 cm NRG Weight 75.8000 kg NRG O2 Sat by Pulse Oximetry 97 NRG Pulse Rate (adult) 76 NRG Respiratory Rate 18 NRG Vital Signs - 10/14/17 12:00 Height 185.599466 cm NRG Weight 75.8000 kg NRG Blood Pressure Source Automatic Cuff NR G O2 Sat by Pulse Oximetry 97 NRG Pulse Rate (adult) 75 NRG Respiratory Rate 17 NRG Blood Pressure Systolic 114 NRG Blood Pressure Diastolic 65 NRG Blood Pressure Mean 80 NRG Vital Signs - 10/14/17 12:15 Height 185.468404 cm NRG Weight 75.8000 kg NRG O2 Sat by Pulse Oximetry 97 NRG Pulse Rate (adult) 71 NRG Respiratory Rate 17 NRG Vital Signs - 10/14/17 12:30 Height 185.041774 cm NRG Weight 75.8000 kg NRG Blood Pressure Source Automatic Cuff NR G O2 Sat by Pulse Oximetry 96 NRG Pulse Rate (adult) 83 NRG Respiratory Rate 16 NRG Blood Pressure Systolic 120 NRG Blood Pressure Diastolic 75 NRG Blood Pressure Mean 87 NRG Vital Signs - 10/14/17 13:00 Height 185.902516 cm NRG Weight 75.8000 kg NRG Blood Pressure Source Automatic Cuff NR G O2 Sat by Pulse Oximetry 98 NRG Pulse Rate (adult) 77 NRG Respiratory Rate 19 NRG Blood Pressure Systolic 109 NRG Blood Pressure Diastolic 60 NRG Blood Pressure Mean 73 NRG Vital Signs - 10/14/17 13:30 Height 185.051693 cm NRG Weight 75.8000 kg NRG Blood Pressure Source Automatic Cuff NR G O2 Sat by Pulse Oximetry 96 NRG Pulse Rate (adult) 68 NRG Respiratory Rate 17 NRG Blood Pressure Systolic 106 NRG Blood Pressure Diastolic 60 NRG Blood Pressure Mean 74 NRG Vital Signs - 10/14/17 14:00 Height 185.725390 cm NRG Weight 75.8000 kg NRG Blood Pressure Source Automatic Cuff NR G O2 Sat by Pulse Oximetry 97 NRG Pulse Rate (adult) 73 NRG Respiratory Rate 17 NRG Blood Pressure Systolic 123 NRG Blood Pressure Diastolic 54 NRG Blood Pressure Mean 73 NRG Vital Signs - 10/14/17 14:30 Height 185.997108 cm NRG Weight 75.8000 kg NRG Blood Pressure Source Automatic Cuff NR G O2 Sat by Pulse Oximetry 97 NRG Pulse Rate (adult) 72 NRG Respiratory Rate 19 NRG Blood Pressure Systolic 105 NRG Blood Pressure Diastolic 58 NRG Blood Pressure Mean 71 NRG Vital Signs - 10/14/17 15:00 Height 185.815873 cm NRG Weight 75.8000 kg NRG Blood Pressure Source Automatic Cuff NR G O2 Sat by Pulse Oximetry 97 NRG Pulse Rate (adult) 69 NRG Respiratory Rate 15 NRG Blood Pressure Systolic 110 NRG Blood Pressure Diastolic 61 NRG Blood Pressure Mean 75 NRG Vital Signs - 10/14/17 15:30 Height 185.281672 cm NRG Weight 75.8000 kg NRG Blood Pressure Source Automatic Cuff NR G O2 Sat by Pulse Oximetry 97 NRG Pulse Rate (adult) 65 NRG Respiratory Rate 17 NRG Blood Pressure Systolic 107 NRG Blood Pressure Diastolic 60 NRG Blood Pressure Mean 73 NRG Vital Signs - 10/14/17 16:00 Height 185.550351 cm NRG Weight 75.8000 kg NRG Blood Pressure Source Automatic Cuff NR G O2 Sat by Pulse Oximetry 97 NRG Pulse Rate (adult) 66 NRG Respiratory Rate 17 NRG Blood Pressure Systolic 108 NRG Blood Pressure Diastolic 62 NRG Blood Pressure Mean 75 NRG Vital Signs - 10/14/17 16:30 Height 185.664991 cm NRG Weight 75.8000 kg NRG Blood Pressure Source Automatic Cuff NR G O2 Sat by Pulse Oximetry 96 NRG Pulse Rate (adult) 65 NRG Respiratory Rate 18 NRG Blood Pressure Systolic 105 NRG Blood Pressure Diastolic 64 NRG Blood Pressure Mean 77 NRG Vital Signs - 10/15/17 01:50 Height 185.628088 cm NRG Weight 77.2000 kg NRG Weight (Calculated Grams) 10449.000 N RG Weight (Kilograms) 77.2000 NRG Weight Measurement Method Built in [facility] NRG MRSAS - 10/15/17 15:20 MRSA SCREEN FOR INFEC CONTROL NO MRSA ISOLATED NRG FT4 - 10/16/17 07:12 FREE T4 0.73 NG/DL 0.58-1.64 TSH - 10/16/17 07:12 THYROID STIMULATING HORMONE 0.757 uIU/ML 0.450-5.330 UASCR - 10/16/17 16:10 COLOR,URINE LIGHT YELLOW NRG CLARITY,URINE CLEAR NRG GLUCOSE, URINE NEGATIVE mg/dl NEGATIVE URINE BILIRUBIN NEGATIVE NEGATIVE KETONES,URINE NEGATIVE MG/DL NEGATIVE URINE SPECIFIC GRAVITY 1.017 1.001-1 .035 URINE BLOOD NEGATIVE NEGATIVE URINE PH 7.0 5.0-9.0 URINE PROTEIN NEGATIVE mg/dL <20 URINE UROBILINOGEN 0.2-1.0 MG/DL 0.2-1.0 URINE NITRITE NEGATIVE NEGATIVE LEUKOCYTE ESTERASE ,URINE NEGATIVE NEGA TIVE URINE CULTURE NOT INDICATED NRG URINE MICROSCOPIC REQUIRED NO NRG CHLPCR - 10/26/17 12:55 CHLAMYDIA TRACHOMATIS (PCR) NR G GCPCR - 10/26/17 12:55 NEISSERIA GONORRHOEAE (PCR) NR G [id number] - 10/26/17 13:30 HIV 4TH GENERATION (AG/AB) Non Reactive Non Reactive Complete blood count (CBC) with automate d white blood cell (WBC) differential - 04/17/19 19:10 Blood leukocytes automated count (number/volume) 5.8 10*3/uL 4.3-11.0 Blood erythrocytes automated count (number/volume) 5.18 10*6/uL 4.35-5.85 Venous blood hemoglobin measurement (mass/volume) 15.3 g/dL 13.3-17.7 Blood hematocrit (volume fraction) 45 % 40-54 Automated erythrocyte mean corpuscular volume 86 [ foz_us] 80-99 Automated erythrocyte mean corpuscular h emoglobin (mass per erythrocyte) 30 pg 25-34 Automated erythrocyte mean corpuscular h emoglobin concentration measurement (mass/volume) 34 g/dL 32-36 Automated erythrocyte distribution width ratio 12. 6 % 10.0- 14.5 Automated blood platelet count (count/volume) 201 10*3/uL 130-400 Automated blood platelet mean volume measurement 11.1 [foz_us] 7.4-10.4 Automated blood neutrophils/100 leukocytes 54 % 42-75 Automated blood lymphocytes/100 leukocytes 31 % 12-44 Blood monocytes/100 leukocytes 9 % 0-12 Automated blood eosinophils/100 leukocytes 5 % 0-10 Automated blood basophils/100 leukocytes 1 % 0-10 Blood neutrophils automated count (number/volume) 3.1 10*3 1.8-7.8 Blood lymphocytes automated count (number/volume) 1.8 10*3 1.0-4.0 Blood monocytes automated count (number/volume) 0. 5 10*3 0.0-1.0 Automated eosinophil count 0.3 10*3/uL 0 .0-0.3 Automated blood basophil count (count/volume) 0.0 10*3/uL 0.0-0.1 Comprehensive metabolic panel - 04/17/19 19:10 Serum or plasma sodium measurement (moles/volume) 141 mmol/L 135-145 Serum or plasma potassium measurement (moles/volume) 3.8 mmol/L 3.6-5.0 Serum or plasma chloride measurement (moles/volume) 104 mmol/L 98-107 Carbon dioxide 28 mmol/L 21-32 Serum or plasma anion gap determination (moles/volume) 9 mmol/L 5-14 Serum or plasma urea nitrogen measurement (mass/volume ) 16 mg/dL 7-18 Serum or plasma creatinine measurement (mass/volume) 1.07 mg/dL 0.60-1.30 Serum or plasma urea nitrogen/creatinine mass ratio 15 NRG Serum or plasma creatinine measurement w ith calculation of estimated glomerular filtration rate > NRG Serum or plasma glucose measurement (mass/volume) 85 mg/dL 70-105 Serum or plasma calcium measurement (mass/volume) 9.2 mg/dL 8.5-10.1 Serum or plasma total bilirubin measurement (mass/volu me) 0.3 mg/dL 0.1-1.0 Serum or plasma alkaline phosphatase yaima surement (enzymatic activity/volume) 49 U/L 40-136 Serum or plasma aspartate aminotransfera se measurement (enzymatic activity/volume) 24 U/L 5-34 Serum or plasma alanine aminotransferase measurement (enzymatic activity/volume) 17 U/L 0-55 Serum or plasma protein measurement (mass/volume) 7.1 g/dL 6.4-8.2 Serum or plasma albumin measurement (mass/volume) 4.7 g/dL 3.2-4.5 Lipase - 04/17/19 19:10 Lipase 47 U/L 8-78 Complete urinalysis with reflex to cultu re - 04/17/19 20:01 Urine color determination YELLOW NRG Urine clarity determination CLEAR NR G Urine pH measurement by test strip 6.5 5-9 Specific gravity of urine by test strip 1.025 1.016-1.022 Urine protein assay by test strip, semi-quantitative NEGATIVE NEGATIVE Urine glucose detection by automated test strip NE GATIVE NEGATIVE Erythrocytes detection in urine sediment by light micr oscopy NEGATIVE NEGATIVE Urine ketones detection by automated test strip NE GATIVE NEGATIVE Urine nitrite detection by test strip NEGATIVE NEGATIVE Urine total bilirubin detection by test strip NEGA TIVE NEGATIVE Urine urobilinogen measurement by automated test strip (mass/volume) 0.2 mg/dL < = 1.0 Urine leukocyte esterase detection by dipstick NEG ATIVE NEGATIVE Automated urine sediment erythrocyte cou nt by microscopy (number/high power field) NONE NRG Automated urine sediment leukocyte count by microscopy (number/high power field) NONE NRG Bacteria detection in urine sediment by light microsco py NEGATIVE NRG Squamous epithelial cells detection in u rine sediment by light microscopy NONE NRG Crystals detection in urine sediment by light microsco py PRESENT NRG Casts detection in urine sediment by light microscopy NONE NRG Mucus detection in urine sediment by light microscopy NEGATIVE NRG Complete urinalysis with reflex to culture NO NRG Amorphous sediment detection in urine sediment by ligh t microscopy FEW LILIAN URATES NRG Urine drug screening test - 04/17/19 20: 01 Urine phencyclidine detection by screening method NEGATIVE NEGATIVE Urine benzodiazepines detection by screening method NEGATIVE NEGATIVE Urine cocaine detection NEGATIVE NEGATI VE Urine amphetamines detection by screening method N EGATIVE NEGATIVE Urine methamphetamine detection by screening method NEGATIVE NEGATIVE Urine cannabinoids detection by screening method P OSITIVE NEGATIVE Urine opiates detection by screening method NEGATI VE NEGATIVE Urine barbiturates detection NEGATIVE N EGATIVE Screening urine tricyclic antidepressants detection NEGATIVE NEGATIVE Urine methadone detection by screening method NEGA TIVE NEGATIVE Urine oxycodone detection NEGATIVE NEGA TIVE Urine propoxyphene detection NEGATIVE N EGATIVE Encounters ACCT No. Visit Date/Time Discharge Status Pt. Type Provider Facility Loc./Unit Complaint [id number] 09/15/2013 09:19:00 09/15/2013 23:59: 59 CLS Outpatient TIGIST COLBERT APRN [id number] 04/14/2013 05:57:00 04/14/2013 23:59: 59 CLS Outpatient TIGIST COLBERT APRN [id number] 03/03/2013 09:48:00 03/03/2013 23:59: 59 CLS Outpatient TIGIST COLBERT APRN [id number] 03/03/2013 09:48:00 03/03/2013 23:59: 59 CLS Outpatient TIGIST COLBERT APRN Jarrell [id number] 02/17/2013 11:07:00 02/17/2013 23:59: 59 CLS Outpatient TIGIST COLBERT APRN [id number] 02/10/2013 10:01:00 02/10/2013 23:59: 59 CLS Outpatient TIGIST COLBERT APRN [id number] 10/26/2017 12:51:00 018 13:57:00 DIS Emergency EKATERINA CHISHOLM, [facility] ED [id number] 10/15/2017 14:17:00 018 15:23:00 DIS [facility] [id number] 10/14/2017 00:01:00 018 14:31:00 DIS Inpatient HECTOR CHISHOLM, OTF [facility] 5SUR W [id number] 04/02/2017 10:03:00 017 13:47:00 DIS Inpatient MELINDA CHISHOLM, [facility] [id number] 03/04/2017 17:37:00 017 19:58:00 DIS Emergency MELINDA CHISHOLM, [facility] ED [id number] 03/03/2017 15:39:00 017 16:16:00 DIS [id number] 02/28/2017 12:32:00 017 17:47:00 DIS Inpatient NEELAM CHISHOLM, MACHO [facility] 1SOU [id number] 11/30/2016 07:27:00 017 09:45:00 DIS Inpatient FOZIA PURI DO [facility] [id number] 10/21/2016 18:30:00 017 19:22:00 DIS Inpatient EKATERINA CHISHOLM, [facility] 1S [id number] 09/24/2016 21:05:00 017 22:00:00 DIS [facility] [id number] 09/03/2016 18:59:00 017 20:56:00 DIS Inpatient EKATERINA CHISHOLM, [facility] 1S [id number] 05/10/2016 08:30:00 017 08:30:00 CAN Outpatient REBECCA CHISHOLM, [facility] [place] [id number] 03/15/2016 08:00:00 016 12:26:00 DIS RCR REBECCA CHISHOLM, [facility] PT [place] [id number] 02/20/2016 10:52:00 016 23:59:00 DIS Outpatient REBECCA CHISHOLM, [facility] XRAY.CMOCC [id number] 01/27/2016 09:16:00 016 09:50:00 DIS Emergency NEELAM CHISHOLM, MACHO [facility] ED [id number] 01/26/2016 04:37:00 016 04:58:00 DIS Emergency RIKKI CHISHOLM, [facility] ED [id number] 01/25/2016 21:46:00 016 22:30:00 DIS Emergency KHADIJAH CHISHOLM, REJI [facility] ED [id number] 10/16/2015 13:55:00 016 16:54:00 DIS Emergency FOZIA PURI DO [facility] ED [id number] 10/14/2015 23:58:00 016 02:20:00 DIS Emergency SUREKHA CHISHOLM, JOCELYN [facility] ED [id number] 10/22/2014 11:33:00 015 13:05:00 DIS Emergency MELINDA CHIHSOLM, ASHLYN [facility] ED [id number] 10/21/2014 18:43:00 015 19:48:00 DIS Inpatient EKATERINA CHISHOLM, SENA [facility] 1SOU [id number] 12/18/2013 19:30:00 Document Registration [id number] 08/06/2013 13:23:00 Document Registration [id number] 07/25/2013 21:20:00 Document Registration [id number] 03/04/2017 17:28:00 017 23:59:59 CLS [facility] ED [id number] 10/21/2016 18:24:00 017 23:59:59 CLS [facility] ED [id number] 10/16/2015 13:49:00 016 23:59:59 CLS [facility] ED [id number] 01/27/2016 09:12:00 016 23:59:59 CLS [facility] ED [id number] 10/21/2014 18:32:00 015 23:59:59 CLS [facility] ED [id number] 10/26/2017 12:50:00 018 23:59:59 CLS [facility] ED [id number] 01/26/2016 04:36:00 016 23:59:59 CLS [facility] ED [id number] 11/30/2016 07:17:00 017 23:59:59 CLS [facility] ED [id number] 12/21/2019 14:48:00 020 15:13:00 DIS Emergency YONATAN VALENZUELA APRN [facility] ER DENTAL PAIN [id number] 04/17/2019 18:50:00 019 20:30:00 DIS Emergency VALENZUELAYONATAN FURNITURE PACKER [facility] ER CHILLS, NAUSEA [id number] 02/07/2013 08:26:00 013 09:37:00 DIS Emergency [id number] 10/14/2017 00:01:[address] Inpatient MANISH CHISOHLM, RICHARD [facility] enter 1SOU [id number] 02/28/2017 10:29:00 017 23:59:59 CLS [facility] [place] [id number] 04/21/2019 16:45:00 04/21/2019 23:59:5 9 CLS Outpatient LIV PRASAD [facility] [id number] 10/15/2017 13:35:00 Document Registration [id number] 10/14/2015 23:56:00 23:59:59 CLS [facility] ED [id number] 05/23/2018 15:30:00 ACT Unknown DENISE LOGAN [facility] l NSER UPPER EXTREMITY PAIN [id number] 03/03/2017 15:36:00 23:59:59 CLS [facility] ED [id number] 09/24/2016 21:02:00 23:59:59 CLS [facility] ED [id number] 01/25/2016 21:44:00 23:59:59 CLS [facility] ED [id number] 09/03/2016 18:05:00 23:59:59 CLS [facility] ED [id number] 01/05/2016 10:09:01 01/05/2016 10:0 9:01 DIS Outpatient [id number] 02/07/2018 14:19:00 Document Registration [id number] 02/07/2018 14:19:00 Document Registration [id number] 02/07/2018 14:19:00 Document Registration [id number] 02/07/2018 14:19:00 Document Registration
== END 2019-12-21 15:13 | disposition home or self-care (01) ==
LOC: EDUNIT# 14:47 → ER 14:48
DX: K02.9 Dental caries, unspecified (principal); F17.290 Nicotine dependence, other tobacco product, uncomplicated; Z88.0 Allergy status to penicillin
CPT/HCPCS: 99282

== ENCOUNTER 2020-06-13 19:40 | Emergency (ER) | payer SELFPAY ==
[~2020-06-13] VITALS: Ht 185.5 cm; Wt 75.7 kg
[~2020-06-13 19:40] MED LIST changes: +ACET-1672 PO; +CLIN300C12 PO; +NAPR-915 PO
--- NOTE | 2020-06-13 19:54 | ED General ---
General Stated Complaint: S.E. CHEST LAC Source of Information: Patient Exam Limitations: No Limitations History of Present Illness Date Seen by Provider: Jun 13, 2020 Time Seen by Provider: 19:53 Initial Comments To ER with reports of a laceration to the left upper chest. He was in a verbal altercation with his girlfriend. She called the police. He went to the other room when the corner trimmer operator got there and took a fixed blade knife with a gut hook to the left upper chest. He states that he did not want to , he did this because he was in a very bad mood and wated to take his mind off of it. He feels much better now. Police state that he was belligerent and irate prior to cut himself and immediately after cutting himself calmed down. He was cooperative all the way here for EMS. He smokes marijuana. He has injected methamphetamine within the past week. Timing/Duration: 1/2 Hour Severity: Moderate Associated Systoms: Denies Symptoms Allergies and Home Medications Allergies Coded Allergies: Penicillins (Unverified Allergy, Mild, 08/30/09) Home Medications Cephalexin Monohydrate 500 Mg Capsule, 1 EACH PO TID . Prescribed by: YONATAN VALENZUELA on 06/14/20 1216 Escitalopram Oxalate 10 Mg Tablet, 10 MG PO DAILY . Prescribed by: YONATAN VALENZUELA on 06/14/20 1216 Patient Home Medication List Home Medication List Reviewed: Yes Review of Systems Review of Systems Constitutional: see HPI EENTM: see HPI Respiratory: no symptoms reported Cardiovascular: no symptoms reported Genitourinary: no symptoms reported Musculoskeletal: no symptoms reported Skin: see HPI Psychiatric/Neurological: No Symptoms Reported Hematologic/Lymphatic: No Symptoms Reported Immunological/Allergic: no symptoms reported Past Pflxpmd-Ibzuyl-Hqadul Hx Patient Social History Type Used: Electronic/Vapor 2nd Hand Smoke Exposure: Yes Recent Hopitalizations: No Immunizations Up To Date PED Vaccines UTD: Yes Seasonal Allergies Seasonal Allergies: No Past Medical History Surgeries: Yes Respiratory: No Cardiac: No Neurological: No Gastrointestinal: Yes Gastroesophageal Reflux Musculoskeletal: No Endocrine: No Cancer: No Psychosocial: Yes (Non medicated) ADD/ADHD, Anxiety, Bipolar, Depression Integumentary: No (septic MRSA) Blood Disorders: No Family Medical History No Pertinent Family Hx Physical Exam Vital Signs Vital Signs - First Documented 06/13/20 19:40 Temp 37.5 Pulse 90 Resp 18 B/P (MAP) 122/87 (99) Pulse Ox 99 O2 Delivery Room Air Capillary Refill : Height, Weight, BMI Height: '" Weight: 160lbs. oz. 72.066065aa; 21.00 BMI Method:Stated General Appearance: No Apparent Distress, WD/WN, Other (Cooperative) Eyes: Bilateral Eye Normal Inspection, Bilateral Eye PERRL Respiratory: No Accessory Muscle Use, No Respiratory Distress Cardiovascular: Regular Rate, Rhythm, Normal Peripheral Pulses Gastrointestinal: Normal Bowel Sounds, Non Tender, Soft Extremity: Normal Capillary Refill, Normal Inspection Neurologic/Psychiatric: Alert, Oriented x3 Skin: Normal Color, Warm/Dry, Other (There is about a 14 cm laceration to the left upper chest without bubbling or sucking. Depth appears to be rather superficial only to the subcutaneous tissue. multiple old scars to left upper chest from previous injuries. Minimal bleeding. Gaping by about 4 cm.) Procedures/Interventions Wound Location: Trunk Wound Length (cm): 14 Wound's Depth, Shape: linear, sub Q Wound Explored: clean Irrigated w/ Saline (ccs): 100 Anesthesia: 1% Lidocaine Volume Anesthetic (ccs): 15 Suture: Ethlion Suture Size: 4-0 Number of Sutures: 2 (two continuous sutures) Layer Closure?: 1 Number Deep Layer Sutures: 0 Progress/Results/Core Measures Suspected Sepsis SIRS Temperature: Pulse: Respiratory Rate: Laboratory Tests 06/13/20 19:48: White Blood Count 6.2 Blood Pressure / Mean: Laboratory Tests 06/13/20 19:48: Creatinine 1.14, Platelet Count 243, Total Bilirubin 0.2 Results/Orders Lab Results Laboratory Tests Test 06/13/20 19:48 06/13/20 21:40 Range/Units White Blood Count 6.2 4.3-11.0 10^3/uL Red Blood Count 4.60 4.30-5.52 10^6/uL Hemoglobin 13.3 13.3-17.7 g/dL Hematocrit 40 40-54 % Mean Corpuscular Volume 88 80-99 fL Mean Corpuscular Hemoglobin 29 25-34 pg Mean Corpuscular Hemoglobin Concent 33 32-36 g/dL Red Cell Distribution Width 12.4 10.0-14.5 % Platelet Count 243 130-400 10^3/uL Mean Platelet Volume 10.1 9.0-12.2 fL Sodium Level 143 135-145 MMOL/L Potassium Level 3.7 3.6-5.0 MMOL/L Chloride Level 105 98-107 MMOL/L Carbon Dioxide Level 26 21-32 MMOL/L Anion Gap 12 5-14 MMOL/L Blood Urea Nitrogen 17 7-18 MG/DL Creatinine 1.14 0.60-1.30 MG/DL Estimat Glomerular Filtration Rate > 60 BUN/Creatinine Ratio 15 Glucose Level 96 70-105 MG/DL Calcium Level 9.3 8.5-10.1 MG/DL Total Bilirubin 0.2 0.1-1.0 MG/DL Direct Bilirubin 0.1 0.0-0.3 MG/DL Indirect Bilirubin 0.1 MG/DL Aspartate Amino Transf (AST/SGOT) 22 5-34 U/L Alanine Aminotransferase (ALT/SGPT) 23 0-55 U/L Alkaline Phosphatase 64 40-136 U/L Total Protein 7.0 6.4-8.2 GM/DL Albumin 4.1 3.2-4.5 GM/DL Salicylates Level < 5.0 L 5.0-20.0 MG/DL Acetaminophen Level < 10 L 10-30 UG/ML Serum Alcohol < 10 <10 MG/DL Urine Color YELLOW Urine Clarity CLEAR Urine pH 7.0 5-9 Urine Specific [place] 1.010 L 1.016-1.022 Urine Protein NEGATIVE NEGATIVE Urine Glucose (UA) NEGATIVE NEGATIVE Urine Ketones NEGATIVE NEGATIVE Urine Nitrite NEGATIVE NEGATIVE Urine Bilirubin NEGATIVE NEGATIVE Urine Urobilinogen 0.2 < = 1.0 MG/DL Urine Leukocyte Esterase NEGATIVE NEGATIVE Urine RBC (Auto) NEGATIVE NEGATIVE Urine RBC NONE /HPF Urine WBC 2-5 /HPF Urine Crystals PRESENT H /LPF Urine Amorphous Sediment FEW LILIAN PHOSPHATE H /LPF Urine Bacteria TRACE /HPF Urine Casts NONE /LPF Urine Mucus NEGATIVE /LPF Urine Culture Indicated NO Urine Opiates Screen NEGATIVE NEGATIVE Urine Oxycodone Screen NEGATIVE NEGATIVE Urine Methadone Screen NEGATIVE NEGATIVE Urine Propoxyphene Screen NEGATIVE NEGATIVE Urine Barbiturates Screen NEGATIVE NEGATIVE Ur Tricyclic Antidepressants Screen NEGATIVE NEGATIVE Urine Phencyclidine Screen NEGATIVE NEGATIVE Urine Amphetamines Screen POSITIVE H NEGATIVE Urine Methamphetamines Screen POSITIVE H NEGATIVE Urine Benzodiazepines Screen NEGATIVE NEGATIVE Urine Cocaine Screen NEGATIVE NEGATIVE Urine Cannabinoids Screen NEGATIVE NEGATIVE My Orders Orders - YONATAN VALENZUELA ROOM SERVICE SERVER Cbc No Diff (06/13/20 19:54) Basic Metabolic Panel (2/8/21 19:54) Liver Panel (06/13/20 19:54) Alcohol (06/13/20 19:54) Ua Culture If Indicated (06/13/20 19:54) Type And Screen (06/13/20 19:54) Chest 1 View, Ap/Pa Only (06/13/20 19:54) End Tidal Co2 (06/13/20 19:54) Monitor-Rhythm Ecg Trace Only (06/13/20 19:54) Ed Iv/Invasive Line Start (06/13/20 19:54) Ct Chest W (06/13/20 19:54) Dipht,Pertuss(Acell),Tet Adult (Boostrix (06/13/20 20:00) Cephalexin Capsule (Keflex Capsule) (06/13/20 20:00) Lidocaine 1% Inj 20 Ml (Xylocaine 1% Inj (06/13/20 20:00) Lorazepam Injection (Ativan Injection) (06/13/20 20:15) Iohexol Injection (Omnipaque 350 Mg/Ml 1 (06/13/20 20:15) Received Contrast (Hold Metformin- Contr (06/13/20 20:15) Ns (Ivpb) (Sodium Chloride 0.9% Ivpb Bag (06/13/20 20:15) Drug Screen Stat (Urine) (06/13/20 20:37) Salicylate (06/13/20 20:37) Acetaminophen (06/13/20 20:37) Medications Given in ED Vital Signs/I&O Capillary Refill : Diagnostic Imaging Diagonstic Imaging: CT Plain Films/CT/US/NM/MRI: chest Comments NAME: [facility] REC#: [id number] PT STATUS: REG ER : 1995 PHYSICIAN: YONATAN VALENZUELA APRN ADMIT DATE: 06/13/20/ER Draft Date of Exam:06/13/20 CT CHEST W PROCEDURE: CT chest with contrast only, 06/13/2020. TECHNIQUE: Multiple contiguous axial images were obtained through the chest after administration of intravenous contrast. Auto Exposure Controls were utilized during the CT exam to meet ALARA standards for radiation dose reduction. INDICATION: Self-inflicted chest wound to the left chest FINDINGS: There is no pneumothorax. No pericardial or pleural effusions. There are calcified granulomata at the left lung base. Mediastinal structures appear intact. Visualized upper abdomen unremarkable. There is no acute osseous abnormality. There is diffuse subcutaneous irregularity overlying the left pectoralis musculature, likely the known wound. There is no evidence for adjacent active bleed. IMPRESSION: 1. Subcutaneous abnormality overlying the left anterior chest wall with no acute process within the deeper structures. No evidence for pneumothorax. Dictated on workstation # [id number] Dict: 06/13/202015 Trans: 06/13/202020 [facility] [id number] Interpreted by: PAOLA GRAY MD Electronically signed by: Departure Communication (Admissions) 1949-Spoke with Dr De La Fuente credit collection associate for trauma. Agrees with paging this as type 2 and upgrading to type 1 PRN. He is hemodynamically stable. 2054-got him stitched up. Remains cooperative. Still asserts that he did not want to kill himself nor does he want to or hurt anybody else currently. He feels like he would be safe to go home and not hurt himself. He would like to start some medications to help with his mood instability. He was formerly on L exapro and Abilify but quit these medications about 6 years ago when he lost his health insurance. Waiting for mental health to call back to screen him. 2035-still awaiting screener to call back 2042-Js from Mental Health doing tele-screen Impression Primary Impression: self inflicted laceration Additional Impression: Mood disorder Disposition: HOME, SELF-CARE Condition: Stable Departure-Patient Inst. Referrals: NO,LOCAL PHYSICIAN (PCP/Family) Primary Care Physician Add. Discharge Instructions: 1. Return to ER in 7-10 days to have the stitches removed. Take the antibiotics as directed. Start the Lexapro. Follow-up with your doctor this week for recheck. Scripts Escitalopram Oxalate (Lexapro) 10 Mg Tablet 10 MG PO DAILY, #30 TAB . Prov: YONATAN VALENZUELA APRN 06/14/20 Cephalexin Monohydrate (Keflex) 500 Mg Capsule 1 EACH PO TID, #15 CAP . Prov: YONATAN VALENZUELA APRN 06/14/20 Images Torso/Trunk 1 - Laceration YONATAN VALENZUELA APRN Jun 13, 2020 19:54
[2020-06-13 19:59] LABS: HEMOGLOBIN 13.3 g/dL (13.3-17.7); MEAN PLATELET VOLUME 10.1 fL (9.0-12.2); WHITE BLOOD COUNT 6.2 10^3/uL (4.3-11.0)
[2020-06-13] MEDS ORDERED: CEPHALEXIN 250 MG (KEFLEX) CAP PO ONE (20:00)
[2020-06-13] MEDS ORDERED: TETANUS,DIPTH,PERTUSS P/F (BOOSTRIX) 0.5 ML VIAL IM ONE (20:00)
[2020-06-13] MEDS ORDERED: LIDOCAINE 1% INJ 20 ML 20 ML VIAL INJ ONE (20:00)
[2020-06-13] MEDS ORDERED: NS 100 ML (IVPB) BAG IV ONE (20:15)
[2020-06-13] MEDS ORDERED: LORazepam INJ 2 MG/ML (ATIVAN) VIAL IVP PRN (20:15)
[2020-06-13] MEDS ORDERED: IOHEXOL 350 MG/ML 100 ML (OMNIPAQUE 350) VIAL IV ONE (20:15)
[2020-06-13] MEDS ORDERED: HOLD METFORMIN - RECEIVED CONTRAST 20 ML VIAL IV SCH (20:15)
[2020-06-13 20:17] LABS: ALANINE AMINOTRANSFERASE 23 U/L (0-55); ALBUMIN 4.1 GM/DL (3.2-4.5); ALKALINE PHOSPHATASE 64 U/L (40-136); BILIRUBIN,DIRECT 0.1 MG/DL (0.0-0.3); BILIRUBIN,INDIRECT 0.1 MG/DL; BILIRUBIN,TOTAL 0.2 MG/DL (0.1-1.0); BUN/CREATININE RATIO 15; CALCIUM 9.3 MG/DL (8.5-10.1); CARBON DIOXIDE 26 MMOL/L (21-32); CHLORIDE 105 MMOL/L (98-107); CREATININE SERUM 1.14 MG/DL (0.60-1.30); GFR ESTIMATED > 60; GLUCOSE 96 MG/DL (70-105); POTASSIUM 3.7 MMOL/L (3.6-5.0); SODIUM 143 MMOL/L (135-145)
--- NOTE | 2020-06-13 20:17 | Diagnostic Imaging Report ---
INDICATION: Self-inflicted chest wound in the upper left chest with a knife. EXAMINATION: Chest 06/13/2020 COMPARISON: 11/01/2011 FINDINGS: Single view chest The cardiomediastinal silhouette is unremarkable. The pulmonary vasculature is within normal limits. The lungs and pleural spaces are clear. There is no pneumothorax. IMPRESSION: No evidence of an acute cardiopulmonary process. Dictated by: Dictated on workstation # [id number]
--- NOTE | 2020-06-13 20:21 | Diagnostic Imaging Report ---
PROCEDURE: CT chest with contrast only, 06/13/2020. TECHNIQUE: Multiple contiguous axial images were obtained through the chest after administration of intravenous contrast. Auto Exposure Controls were utilized during the CT exam to meet ALARA standards for radiation dose reduction. INDICATION: Self-inflicted chest wound to the left chest FINDINGS: There is no pneumothorax. No pericardial or pleural effusions. There are calcified granulomata at the left lung base. Mediastinal structures appear intact. Visualized upper abdomen unremarkable. There is no acute osseous abnormality. There is diffuse subcutaneous irregularity overlying the left pectoralis musculature, likely the known wound. There is no evidence for adjacent active bleed. IMPRESSION: 1. Subcutaneous abnormality overlying the left anterior chest wall with no acute process within the deeper structures. No evidence for pneumothorax. Dictated by: Dictated on workstation # [id number]
[2020-06-13 20:53] LABS: SALICYLATE < 5.0 MG/DL (5.0-20.0)
[2020-06-13 20:55] LABS: ACETAMINOPHEN < 10 UG/ML (10-30)
[2020-06-13] MEDS ORDERED: CEPH-38 PO (21:36)
[2020-06-13] MEDS ORDERED: ESCI10TA PO (21:36)
--- NOTE | 2020-06-13 21:41 | NUR ---
CC MENTAL HEALTH SCREENER CONDUCTING ZOOM EVALUATION AT THIS TIME.
[2020-06-13 21:46] LABS: BILIRUBIN,URINE NEGATIVE (NEGATIVE); CLARITY,URINE CLEAR; COLOR,URINE YELLOW; GLUCOSE, URINE (UA) NEGATIVE (NEGATIVE); KETONES,URINE NEGATIVE (NEGATIVE); LEUKOCYTE ESTERASE ,URINE NEGATIVE (NEGATIVE); NITRITE,URINE NEGATIVE (NEGATIVE); PROTEIN,URINE NEGATIVE (NEGATIVE)
[2020-06-13 22:05] LABS: AMPHETAMINE SCREEN, URINE POSITIVE (NEGATIVE); BARBITURATE SCREEN URINE NEGATIVE (NEGATIVE); BENZODIAZEPINES SCREEN URINE NEGATIVE (NEGATIVE); CANNABINOID SCREEN, URINE NEGATIVE (NEGATIVE); COCAINE SCREEN URINE NEGATIVE (NEGATIVE); METHADONE STAT NEGATIVE (NEGATIVE); METHAMPHETAMINE SCREEN URINE S POSITIVE (NEGATIVE); OPIATE SCREEN URINE NEGATIVE (NEGATIVE); OXYCODONE STAT NEGATIVE (NEGATIVE); PROPOXYPHENE STAT NEGATIVE (NEGATIVE); TRICYCLIC ANTIDEPRESSANTS SCRE NEGATIVE (NEGATIVE)
[2020-06-13 22:06] LABS: AMORPHOUS SEDIMENT,UR FEW AMOR PHOSPHATE /LPF; BACTERIA,URINE TRACE /HPF
[2020-06-13 22:45] VITALS: BP 119/76
[2020-06-14] MEDS ORDERED: CEPH-38 PO (12:16)
[2020-06-14] MEDS ORDERED: ESCI10TA PO (12:16)
== END 2020-06-13 23:00 | disposition home or self-care (01) ==
LOC: EDUNIT# 19:43 → ER 19:44
DX: S21.112A Laceration without foreign body of left front wall of thorax without penetration into thoracic cavity, initial encounter (principal); F32.9 Major depressive disorder, single episode, unspecified; F41.9 Anxiety disorder, unspecified; Z88.0 Allergy status to penicillin; Z77.22 Contact with and (suspected) exposure to environmental tobacco smoke (acute) (chronic); Z23 Encounter for immunization; Y04.0XXA Assault by unarmed brawl or fight, initial encounter
CPT/HCPCS: 71045; 71260; 80048; 80076; 80306; 81000; 85027; 86850; 86900; 86901; 93041; 99284; G0480 ×3; 36415; 80320; 80329; 90715